=== PATIENT | male | born 1935 | race Caucasian/White ===

== ENCOUNTER → 2023-11-17 11:17 | Outpatient (REF) | payer MEDICARE, OTHER, SELFPAY ==
[2023-11-17 12:32] LABS: PSA, Total - Diagnostic 0.63 ng/ml (0.0-4.0)
== END ==
LOC: OLABPV 11:17
PROVIDERS: ATTENDING PHYSICIAN Specialist
DX: R97.21 Rising PSA following treatment for malignant neoplasm of prostate (principal)
CPT/HCPCS: 36415; 84153

== ENCOUNTER → 2024-01-25 12:11 | Outpatient (REF) | payer MEDICARE, OTHER, SELFPAY ==
[2024-01-25 13:20] LABS: % Basophils 0.7 % (0-2); % Eosinophils 2.2 % (0-6); % Immature Granulocytes 0.2 % (0-0.5); % Lymphocytes 30.4 % (20.5-51.1); % Monocytes 8.5 % (1.7-9.3); Absolute Eosinophils 0.1 10^3/uL (0-0.7); Absolute Lymphocytes 1.4 10^3/uL (1.2-3.4); Absolute Monocytes 0.4 10^3/uL (0.1-0.6); Absolute Neutrophils 2.7 10^3/uL (1.4-6.5); Hematocrit 31.1 % (39.0-52.0); Hemoglobin 10.9 g/dL (13.0-18.0); Mean Corpuscular Hgb 32.8 pg (27.0-31.0); Mean Corpuscular Volume 93.7 fL (80.0-94.0); Mean Platelet Volume 10.6 fL (7.4-10.4); Nucleated Red Blood Cells % 0 % (-); Platelet Count 149 10^3/uL (130-400); Red Blood Cell Count 3.32 10^6/uL (4.70-6.10); White Blood Cell Count 4.6 10^3/uL (4.8-10.8)
[2024-01-25 13:50] LABS: ALT (SGPT) 14 U/L (0-50); AST (SGOT) 25 U/L (17-59); Albumin 3.6 g/dl (3.5-5.0); Alkaline Phosphatase 60 U/L (38-126); Blood Urea Nitrogen 14 mg/dl (9-20); Calcium 9.1 mg/dl (8.4-10.2); Carbon Dioxide 24 mmol/L (22-30); Chloride 105 mmol/L (98-107); Glucose 92 mg/dl (70-99); HDL Cholesterol 79 mg/dl; LDL Cholesterol, Calculated 50 mg/dl; Potassium 4.2 mmol/L (3.5-5.1); Sodium 134 mmol/L (135-145); Total Bilirubin 1.2 mg/dl (0.2-1.3); Total Cholesterol 139 mg/dl (50-199); Total Protein 6.1 g/dl (6.3-8.2); Triglyceride 52 mg/dl (10-149); Very Low Density Lipoprotein 10 mg/dl (0-30); eGFR > 60.00
[2024-01-25 14:17] LABS: PSA, Total - Diagnostic 0.38 ng/ml (0.0-4.0)
== END ==
LOC: OLABPV 12:11
PROVIDERS: ATTENDING PHYSICIAN Specialist; FAMILY PHYSICIAN Family Medicine
DX: R97.21 Rising PSA following treatment for malignant neoplasm of prostate (principal); E78.2 Mixed hyperlipidemia; D72.819 Decreased white blood cell count, unspecified
CPT/HCPCS: 80053; 80061; 84153; 85025

== ENCOUNTER → 2024-02-21 15:20 | Outpatient (REF) | payer MEDICARE, OTHER, SELFPAY ==
[2024-02-21 15:54] LABS: Urine Albumin 1+ (Neg - Trace); Urine Bilirubin 1+ (Negative); Urine Character Very Cloudy (Clear); Urine Color Yellow; Urine Glucose Negative (Negative); Urine Ketone 1+ (Negative); Urine Leukocyte Trace (Negative); Urine Nitrite Positive (Negative); Urine Occult Blood 4+ (Negative); Urine Urobilinogen Negative (Neg - 1+)
[2024-02-21 16:20] LABS: Urine Bacteria Few (Negative); Urine Mucus Many; Urine Red Blood Cell 70-80 /HPF (0-2); Urine Squamous Cell 0-2 /LPF (Few)
== END ==
LOC: REG 15:20
PROVIDERS: ATTENDING PHYSICIAN Physician Assistant; OTHER PHYSICIAN Specialist; REFERRING PHYSICIAN Family Medicine
DX: R31.0 Gross hematuria (principal)
CPT/HCPCS: 81003; 81015; 87086

== ENCOUNTER → 2024-02-22 15:02 | Outpatient (REF) | payer MEDICARE, OTHER, SELFPAY | LOC: HWRAD 15:02 | PROVIDERS: ATTENDING PHYSICIAN Physician Assistant; REFERRING PHYSICIAN Specialist | DX: R31.0 Gross hematuria (principal) | CPT/HCPCS: 74176 ==

== ENCOUNTER 2024-03-02 10:41 | Day surgery (SDC) | payer MEDICARE, OTHER, SELFPAY | END 2024-03-02 12:55 | disposition home or self-care (01) | LOC: CATH 10:41 | PROVIDERS: ATTENDING PHYSICIAN Internal Medicine; FAMILY PHYSICIAN Family Medicine; OTHER PHYSICIAN Internal Medicine Cardiovascular Disease | DX: I48.0 Paroxysmal atrial fibrillation (principal); I10 Essential (primary) hypertension; I49.5 Sick sinus syndrome; Z95.0 Presence of cardiac pacemaker; Z85.46 Personal history of malignant neoplasm of prostate; Z85.828 Personal history of other malignant neoplasm of skin | CPT/HCPCS: 92960; 93005 ==

== ENCOUNTER 2024-03-03 00:32 | Inpatient (IN) | payer MEDICARE, OTHER, SELFPAY ==
[2024-03-02] VITALS (10 sets, daily range): BP systolic 133–153; BP diastolic 100–122; PULSE 2–126; BMI 23.5
[2024-03-02 21:49] LABS: % Basophils 0.3 % (0-2); % Eosinophils 0.2 % (0-6); % Immature Granulocytes 0.5 % (0-0.5); % Lymphocytes 12.3 % (20.5-51.1); % Monocytes 6.1 % (1.7-9.3); % Neutrophils 80.6 % (42.2-75.2); Absolute Immature Granulocytes 0.1 10^3/uL (0-0.05); Absolute Lymphocytes 1.4 10^3/uL (1.2-3.4); Absolute Monocytes 0.7 10^3/uL (0.1-0.6); Absolute Neutrophils 9.1 10^3/uL (1.4-6.5); Hematocrit 34.4 % (39.0-52.0); Mean Corp Hgb Conc. 34.9 g/dL (33.0-37.0); Mean Corpuscular Hgb 32.3 pg (27.0-31.0); Mean Corpuscular Volume 92.5 fL (80.0-94.0); Mean Platelet Volume 10.9 fL (7.4-10.4); Nucleated Red Blood Cells % 0 % (-); Platelet Count 248 10^3/uL (130-400); Red Blood Cell Count 3.72 10^6/uL (4.70-6.10); Red Cell Dist. Width 14.2 % (11.5-14.5); White Blood Cell Count 11.2 10^3/uL (4.8-10.8)
[2024-03-02] MEDS: DUONEB 3 ML INH (22:05)
[2024-03-02 22:22] LABS: ALT (SGPT) 75 U/L (0-50); AST (SGOT) 66 U/L (17-59); Alkaline Phosphatase 118 U/L (38-126); Blood Urea Nitrogen 15 mg/dl (9-20); Calcium 9.5 mg/dl (8.4-10.2); Carbon Dioxide 17 mmol/L (22-30); Chloride 106 mmol/L (98-107); Estimated Creatinine Clearance 71 ml/min; Glucose 134 mg/dl (70-99); Potassium 4.5 mmol/L (3.5-5.1); Sodium 135 mmol/L (135-145); Total Bilirubin 1.2 mg/dl (0.2-1.3); Total Protein 6.9 g/dl (6.3-8.2); eGFR > 60.00
--- NOTE | 2024-03-02 22:23 | ED.GENMED ---
History of Present Illness
<MARTHA Erazo - Last Filed: 03/03/24 01:03>
General
Chief Complaint: Breathing Problem
Source: patient and records
Exam Limitations: none
Time Seen by Provider: 03/02/24 21:59
Travel History
Have you had any contact with someone who has COVID-19?: No
Do you have any symptoms of coronavirus? Fever > 100 degrees, chills, cough, shortness of breath, sore throat, loss of taste or smell, muscle aches, or headache?: No
History of Present Illness
History of Present Illness:
88 year old male with hx of afib, pacemaker in place, recently cardioverted this morning who presents with SOB that began this afternoon. Pt was in afib and was successfully cardioverted here this morning. Around midafternoon he developed SOB with
walking. States he was talking fine and eating dinner with friends. Prior to arrival he developed SOB that has been constant. He also reports intermittent dizziness. Denies chest pain, fevers/chills, cough, abdominal pain, n/v/d, or recent illness.
He has been on Eliquis 5 mg for the past 3 weeks.
Past History
<MARTHA Erazo - Last Filed: 03/03/24 01:03>
Past History
ED Past Medical History: HTN and Hypercholesterolemia
Social History
Personal:
Review of Systems
<MARTHA Erazo - Last Filed: 03/03/24 01:03>
Review of Systems
Allergies reviewed?: Yes
All Other Systems: ROS reviewed and negative except as documented in HPI and ROS
Constitutional: Reports fatigue
EENT: Reports no symptoms
Respiratory: Reports trouble breathing
Cardiac: Reports no symptoms
ABD/GI: Reports no symptoms
: Reports no symptoms
Musculoskeletal: Reports no symptoms
Skin: Reports no symptoms
Neurological: Reports dizzy
Endocrine: Reports no symptoms
Hematologic/Lymphatic: Reports no symptoms
Psychiatric: Reports no symptoms
Phy Exam
<MARTHA Erazo - Last Filed: 03/03/24 01:03>
General Physical Exam
General Presentation: moderate distress
General age: appears stated age
General Skin: warm and dry
General Habitus: normal
General Mental: alert
General Hydration: appears well hydrated
Cardiovascular Exam
Cardiovascular Exam: no gallop, no murmur, normal peripheral pulses and tachycardia
Pulmonary Exam
Pulmonary Exam: no rales, no rhonchi, decreased breath sounds, generalized wheezing, respiratory distress (mild) and other (Pt with mild respiratory distress, only able to speak in short sentences before needing to catch his breath. Pacemaker to R
anterior chest. )
Respiratory Effort: tachypnea
Oxygen Status: non-rebreather mask
Cough: no cough
Neurological Exam
Neurological Exam: alert and oriented x3
Musculoskeletal Exam
Musculoskeletal Exam: edema (mild, bilateral lower extremities)
Skin Exam
Skin Exam: normal color and warm/dry
Psychiatric Exam
Psychiatric Exam: anxious
Scores
<MARTHA Erazo - Last Filed: 03/03/24 01:03>
Heart Failure Risk
HF Risk Score: 6
Admission Status: VERY HIGH RISK 55.3% Consider admission to hospital
<Max Chandler DO - Last Filed: 03/03/24 00:36>
Heart Failure Risk
Heart Failure Risk Score: Yes
History of Stroke or TIA: No
History of intubation for respiratory distress: No
Heart rate on ED arrival >/= 110: Yes
SaO2 <90% on arrival on room air: Yes
HR >/=110 during 3min walk test (or too ill to perform test): Yes
ECG has acute ischemic changes: No
Urea >/=12mmol/L (BUN 33.6mg/dL): No
Serum CO2>/=35mmol/L: No
Troponin I or T elevated to MO Level (0.4mg/dL): Yes
NT-proBNP >/=5,000ng/L (5,000pg/ml): Yes
HF Risk Score: 6
Admission Status: VERY HIGH RISK 55.3% Consider admission to hospital
Course
<MARTHA Erazo - Last Filed: 03/03/24 01:03>
Orders/Labs/Results
Orders:
Orders
03/02/24 21:17
Electrocardiogram (*1) Urgent
Reason for Study: Shortness of Breath
EKG- Treatment ONCE
03/02/24 21:38
Complete Blood Count/With Diff Urgent
Comprehensive Metabolic Panel Urgent
03/02/24 21:49
Ipratropium/Albuterol Sulfate [Duoneb] 3 ml .ROUTE .STK-MED ONE
03/02/24 22:05
Ipratropium/Albuterol Sulfate [Duoneb] 3 ml INH R NOW ONE
03/02/24 22:38
Nitroglycerin Ointment [Nitro-Bid] 0.5 inch TOPICAL NOW STA
03/02/24 22:39
CT Chest Pe Study Urgent
Comment:
Reason For Exam: sudden onset dyspnea
03/02/24 22:42
NT-proBNP Urgent
Troponin I Urgent
Comment: ADDED
03/02/24 23:22
Add On- LAB Urgent
Tests Added?: troponin
03/02/24 23:23
Furosemide [Lasix] 60 mg IV NOW STA
03/02/24 23:29
Bipap [RESP] Urgent
Patient to use own unit?: No
Inspiratory Pressure (cm H2O): 12
Expiratory Pressure (cm H2O): 5
03/02/24 23:59
Lorazepam [Ativan] 2 mg .ROUTE .STK-MED ONE
03/03/24 00:01
Lorazepam [Ativan] 0.25 mg IV NOW STA
03/03/24 00:11
Admit/Transfer Patient As Directed
Co-Sign Provider:
Level of Care: Inpatient admission
Assign to:: ICU
Physician / Group: Aleksey
Diagnosis: CHF / Hypoxemic Resp Failure
Reason for Hospitalization: CHF / Hypoxemic Resp Failure
Expected length of stay greater than two midnights?: Yes
ELOS- Estimated Length of Stay in days: 3
I certify the patient meets the requirements for IP care: Yes
03/03/24 00:12
Code Status As Directed
Resuscitation Status: Full Code
Abnormal Lab Results
03/02/24 03/02/24
21:38 22:42
WBC 11.2 H 10^3/uL
(4.8-10.8)
RBC 3.72 L 10^6/uL
(4.70-6.10)
Hgb 12.0 L g/dL
(13.0-18.0)
Hct 34.4 L %
(39.0-52.0)
MCH 32.3 H pg
(27.0-31.0)
MPV 10.9 H fL
(7.4-10.4)
Abs Immat Gran (auto) 0.1 H 10^3/uL
(0-0.05)
Absolute Neuts (auto) 9.1 H 10^3/uL
(1.4-6.5)
Absolute Monos (auto) 0.7 H 10^3/uL
(0.1-0.6)
Neutrophils % 80.6 H %
(42.2-75.2)
Lymphocytes % 12.3 L %
(20.5-51.1)
Carbon Dioxide 17 L mmol/L
(22-30)
Glucose 134 H mg/dl
(70-99)
AST 66 H U/L
(17-59)
ALT 75 H U/L
(0-50)
Troponin I 0.103 H* ng/ml
03/02/24 21:38
03/02/24 21:38
Vital Signs
Initial and Last Documented VS:
Initial Vital Signs
Temp Pulse Resp BP Pulse Ox
98 F 120 30 142/104 88
03/02/24 21:17 03/02/24 21:17 03/02/24 21:17 03/02/24 21:17 03/02/24 21:17
Last Documented Vital Signs
Temp Pulse Resp BP Pulse Ox
98 F 112 28 119/92 95
03/02/24 21:17 03/03/24 00:16 03/03/24 00:16 03/03/24 00:16 03/03/24 00:27
<Max Chandler, DO - Last Filed: 03/03/24 00:36>
Orders/Labs/Results
Orders:
Orders
03/02/24 21:17
Electrocardiogram (*1) Urgent
Reason for Study: Shortness of Breath
EKG- Treatment ONCE
03/02/24 21:38
Complete Blood Count/With Diff Urgent
Comprehensive Metabolic Panel Urgent
03/02/24 21:49
Ipratropium/Albuterol Sulfate [Duoneb] 3 ml .ROUTE .STK-MED ONE
03/02/24 22:05
Ipratropium/Albuterol Sulfate [Duoneb] 3 ml INH R NOW ONE
03/02/24 22:38
Nitroglycerin Ointment [Nitro-Bid] 0.5 inch TOPICAL NOW STA
03/02/24 22:39
CT Chest Pe Study Urgent
Comment:
Reason For Exam: sudden onset dyspnea
03/02/24 22:42
NT-proBNP Urgent
Troponin I Urgent
Comment: ADDED
03/02/24 23:22
Add On- LAB Urgent
Tests Added?: troponin
03/02/24 23:23
Furosemide [Lasix] 60 mg IV NOW STA
03/02/24 23:29
Bipap [RESP] Urgent
Patient to use own unit?: No
Inspiratory Pressure (cm H2O): 12
Expiratory Pressure (cm H2O): 5
03/02/24 23:59
Lorazepam [Ativan] 2 mg .ROUTE .STK-MED ONE
03/03/24 00:01
Lorazepam [Ativan] 0.25 mg IV NOW STA
03/03/24 00:11
Admit/Transfer Patient As Directed
Co-Sign Provider:
Level of Care: Inpatient admission
Assign to:: ICU
Physician / Group: Aleksey
Diagnosis: CHF / Hypoxemic Resp Failure
Reason for Hospitalization: CHF / Hypoxemic Resp Failure
Expected length of stay greater than two midnights?: Yes
ELOS- Estimated Length of Stay in days: 3
I certify the patient meets the requirements for IP care: Yes
03/03/24 00:12
Code Status As Directed
Resuscitation Status: Full Code
Abnormal Lab Results
03/02/24 03/02/24
21:38 22:42
WBC 11.2 H 10^3/uL
(4.8-10.8)
RBC 3.72 L 10^6/uL
(4.70-6.10)
Hgb 12.0 L g/dL
(13.0-18.0)
Hct 34.4 L %
(39.0-52.0)
MCH 32.3 H pg
(27.0-31.0)
MPV 10.9 H fL
(7.4-10.4)
Abs Immat Gran (auto) 0.1 H 10^3/uL
(0-0.05)
Absolute Neuts (auto) 9.1 H 10^3/uL
(1.4-6.5)
Absolute Monos (auto) 0.7 H 10^3/uL
(0.1-0.6)
Neutrophils % 80.6 H %
(42.2-75.2)
Lymphocytes % 12.3 L %
(20.5-51.1)
Carbon Dioxide 17 L mmol/L
(22-30)
Glucose 134 H mg/dl
(70-99)
AST 66 H U/L
(17-59)
ALT 75 H U/L
(0-50)
Troponin I 0.103 H* ng/ml
03/02/24 21:38
03/02/24 21:38
Vital Signs
Initial and Last Documented VS:
Initial Vital Signs
Temp Pulse Resp BP Pulse Ox
98 F 120 30 142/104 88
03/02/24 21:17 03/02/24 21:17 03/02/24 21:17 03/02/24 21:17 03/02/24 21:17
Last Documented Vital Signs
Temp Pulse Resp BP Pulse Ox
98 F 112 28 119/92 95
03/02/24 21:17 03/03/24 00:16 03/03/24 00:16 03/03/24 00:16 03/03/24 00:27
[place];MARTHA Erazo - Last Filed: 03/03/24 01:03>
MDM/Problems Addressed
Differential Diagnosis Includes:
Afib, PE, CHF, PNA
MDM/Problems Addressed:
88 year old male who presents with SOB that began today in the midafternoon.
Chronic conditions affecting care: HTN and Arrhythmia (afib)
<MARTAH Erazo - Last Filed: 03/03/24 01:03>
*Critical Care Note
Total Time (30-74mins, 75-104mins- exclusive of procedures): Not Applicable
ED Attending Note
<MARTHA Erazo - Last Filed: 03/03/24 01:03>
-
Portions of this chart may have been created with voice recognition software.� Occasional wrong word or��sound alike� substitutions may have occurred due to the inherent limitations of voice recognition software.
<Max Chandler DO - Last Filed: 03/03/24 00:36>
ED Attending Note
Patient seen and examined by attending physician: Yes
I performed the substantive portion of visit, reviewed & personally made and approve the management plan that is documented in note by myself or YVONNE.: Yes
ED Attending Note:
Pleasant 88-year-old male that presents with shortness of breath that began quite suddenly this afternoon. Patient was seen earlier and had cardioversion successfully. His shortness of breath developed after the cardioversion. Patient states that
he developed dyspnea on exertion patient denies chest pain. He reports no fevers chills nausea or vomiting. Patient has been on Eliquis for 3 weeks and has been taking it as directed. Patient was seen in conjunction with the PA student. I have
reviewed and agree with the history and treatment plan presented. On my independent physical exam, patient is awake, alert, and oriented x3, moderate acute distress. Dyspnea on exertion.
Vital signs are stable. Patient not hypoxic
Nursing note reviewed. I agree with nursing documentation up to this point in time.
Home Meds and allergies reviewed.
NUMBER AND COMPLEXITY OF PROBLEMS ADDRESSED AT THE ENCOUNTER
� Chronic conditions affecting care: Hypertension, A-fib
� Acute Exacerbation and/or Progression of Chronic Illness: Pacemaker
� Differential Diagnosis includes:
AMOUNT AND/OR COMPLEXITY OF DATA TO BE REVIEWED AND ANALYZED
I performed an independent evaluation of the following and my interpretation is:
EKG: Sinus tachycardia rate of 109 was normal intervals, no evidence of acute ischemia present.
CT:
X-rays:
Ultrasound:
Laboratory Studies:
Other:
Review of other/old records:
Clinical information was obtained by an independent historian:
Prescriptions/Medications Considered but not given:
Further testing considered but not performed:
RISK OF COMPLICATIONS AND/OR MORBIDITY OR MORTALITY OF PATIENT MANAGEMENT
Social determinants of health affecting care: Good Social Support
Discussion with other providers:
Escalation of care including admission/observation vs risk of discharge considered:
CRITICAL CARE NOTE:
Total Time (exclusive of procedures):
Update:
Discharge Plan
Departure
Patient Disposition: Admit
Date of Disposition: 03/02/24
Time of Disposition: 23:37
Admit to: IVU
Presentation/result/management discussed w/ accepting MD/DO: Hospitalist
Patient with high blood pressure during this ER visit?: Yes
Condition: Serious
Discharge Problem:
Flash pulmonary edema
Interventions
Interventions:
*Risk Screen - Suicide Last Done: 03/02/24 21:17
*General Assessment Last Done: 03/02/24 21:17
*Neglect/Abuse Screening Last Done: 03/02/24 21:17
ED- Fall Risk Assessment Last Done: 03/02/24 23:34
ED- Cardiac Assessment Last Done: 03/02/24 23:34
ED- Pulmonary Assessment Last Done: 03/03/24 00:31
[2024-03-02] MEDS: NITRO-BID 0.5 INCH TOPICAL (22:42)
[2024-03-02 23:10] LABS: NT-proBNP 5930 pg/ml
[2024-03-02] MEDS: LASIX 60 MG IV (23:32)
[2024-03-03] VITALS (44 sets, daily range): BP systolic 91–153; BP diastolic 61–117; PULSE 2–102; O2SAT 94; BMI 23.2
[2024-03-03] MEDS: ATIVAN 0.25 MG IV (00:01)
[2024-03-03 00:03] LABS: Troponin I 0.103 ng/ml
--- NOTE | 2024-03-03 00:23 | HPS.HSE ---
Family Physician
-
Family Physician: Harsha Oliva
Chief Complaint
-
SOB
History of Present Illness
Patient is an 88y M with PMH significant for SSS / A-Fib and hypertension who presents to ED complaining of SOB. Patient states that he has had gradually progressive dyspnea for the past few weeks or so. It has become significantly worse in the
past week and patient was evaluated by Cardiology and found to be in atrial fibrillation. This was initially noted on his PPM on 02/15 and has been persistent since that time. Given his new A-Fib and worsening dyspnea, patient was scheduled for
cardioversion which he completed earlier today. He received a single shock at 200 J with successful return to sinus rhythm.
Patient states that he remained SOB following the procedure and felt much more SOB this afternoon - prompting his presentation to the ED for evaluation.
In the ED, patient is noted to be diaphoretic and in moderate distress at times with increased work of breathing. He denies any chest pain. No cough. No fevers / chills.
He was hypoxemic at 88% on room air on arrival and is on BiPAP at the time of my examination.
Medical History
Past Medical History
Past Medical History: Reports Other
Additional Past Medical History:
Hypertension
Paroxysmal Atrial Fibrillation
SSS s/p PPM
Prostate Cancer
Nephrolithiasis
Non-Melanoma Skin Cancer
Past Surgical History: Reports Other
Additional Past Surgical History:
PPM Placement
TURP
Herniorrhaphy
Skin Cancer Excision
Social History
Tobacco: Non-smoker
Alcohol: Occasional
Drug: None
Family History
Family History: Other (Father: Thoracic Aortic Aneurysm Mother: Breast Cancer)
Allergies / Home Medications
Allergies reflects when Allergies were last updated in [facility].
Home Medications with original date entered in [facility]
Allergy/Medication List:
Allergies
Allergy/AdvReac Type Severity Reaction Status Date / Time
No Known Allergies Allergy Unverified 11/30/22 11:52
Home Medications
atorvastatin 10 mg tablet 10 mg PO HS 06/29/13
tamsulosin 0.4 mg capsule 0.4 mg PO DAILY #5 caps 07/18/14
cyclosporine 0.05 % eye drops 1 drp BOTH EYES Q12H 11/30/22
fluticasone propionate 50 mcg/actuation nasal spray,suspension 1 spray intranasal DAILY PRN nasal congestion 11/30/22
losartan 50 mg tablet 50 mg PO DAILY 11/30/22
apixaban 5 mg tablet (Eliquis) 5 mg PO BID 03/02/24
cholecalciferol (vitamin D3) 25 mcg (1,000 unit) tablet (Vitamin D3) 25 mcg PO DAILY 03/02/24
ginkgo biloba 60 mg capsule 60 mg PO DAILY 03/02/24
metoprolol succinate 50 mg tablet,extended release 24 hr (Toprol XL) 50 mg PO DAILY 03/02/24
tadalafil 10 mg tablet 5 mg PO DAILY 03/02/24
Review of Systems
-
History Source: Patient
A 12 point ROS was completed and negative except as noted: Yes
Constitutional: Reports Fatigue; Denies Fever or Chills
EENT: Denies Sore Throat
Respiratory: Reports Trouble Breathing; Denies Cough or Hemoptysis
Cardiac: Reports Diaphoresis; Denies Chest Pain, Palpitations or Syncope
Abdomen/GI: Denies Abdominal Pain, Nausea or Vomiting
: Denies Dysuria or Frequency
Neurological: Denies Dizzy or Headache
Psych: Reports Anxiety; Denies Depression
Physical Exam
Vital Signs
Vital Signs
Temp Pulse Resp BP Pulse Ox
98 F 106 33 138/104 97
03/02/24 21:17 03/03/24 00:00 03/03/24 00:00 03/03/24 00:00 03/02/24 23:45
Physical Exam
General: Other (Diaphoretic 88y M in moderate respiratory distress.)
HEENT: Moist mucous membranes and PERRLA
Respiratory: Other (Diffuse rales and expiratory wheezes throughout.)
Cardiac: S1/S2 and Irregular Rhythm; No Murmur
GI: Soft, Non Tender, Non Distended and Normal Bowel Sounds
Musculoskeletal: No Clubbing, No Cyanosis and Other (1+ pitting edema b/l LEs.)
Neuro: AO x 3 and Nonfocal/grossly intact
Laboratory Results
-
03/02/24 21:38
03/02/24 21:38
Laboratory Results
Total Bilirubin 1.2 mg/dl (0.2-1.3) 03/02/24 21:38
AST 66 U/L (17-59) H 03/02/24 21:38
ALT 75 U/L (0-50) H 03/02/24 21:38
Alkaline Phosphatase 118 U/L (38-126) 03/02/24 21:38
Troponin I 0.103 ng/ml H* 03/02/24 22:42
Impression/Plan
-
A/P: Patient is an 88y M with PMH significant for SSS, paroxysmal A-Fib and hypertension who presents to ED complaining of worsening SOB following DCCV earlier in the day.
Acute HF - Likely Preserved EF
Acute Hypoxemic Respiratory Failure secondary to the above
Bilateral Pleural Effusions secondary to the above
- Admit to ICU for further evaluation and treatment.
- Maintain BiPAP support overnight.
- IV Lasix BID and follow for effective diuresis.
- Update Echo.
- Cardiology evaluation for additional recommendations.
- Avoid nitroglycerin for now in patient on chronic / daily tadalafil.
- Follow serial trop to rule out new ischemia - would suspect some elevation given today's cardioversion.
Leukocytosis
- Likely stress response. Patient is afebrile and denies any recent complaints c/w infection.
- Observe off of abx for now and follow for any new complaints, fevers, etc.
Non-Ischemic Myocardial Injury
- Mild troponin elevation likely combination of cardioversion and current CHF exacerbation.
- Follow to [facility].
- Cardiology eval as noted above.
Paroxysmal Atrial Fibrillation
SSS s/p PPM
- Stable. Remains in sinus rhythm, albeit with frequent ventricular and atrial ectopy.
- Continue to monitor on telemetry.
- Continue metoprolol.
- Continue Eliquis for stroke risk reduction.
Benign Hypertension
- Currently significantly elevated - likely due to combination of dyspnea / distress and hypervolemia.
- Avoid nitrates as noted (x 48 hours) given daily tadalafil use.
- Continue usual home antihypertensives plus efforts at diuresis.
- Adjust regimen as needed for adequate BP control.
History of Prostate Cancer
- Hold tadalafil as noted above.
- Continue tamsulosin.
- Bladder scan protocol.
DVT Prophylaxis: On Eliquis
Code Status: Full
[2024-03-03] MEDS: MORPHINE SULFATE 2 MG IV (01:45)
--- NOTE | 2024-03-03 02:09 | PTCARENOTE ---
Pt received from ED via stretcher. Admit ICU LOC. Ox3, drowsy but easily arousable to verbal stimuli. Dyspnea at rest, difficulty speaking. PRN morphine given for dyspnea. Now tolerating bipap 12/5, 8L. Pulse ox 100%. Breath sounds coarse t/o. Sinus
tach w/ frequent PVCs and occasional AV pacer spikes. + bowel sounds. Per report, urinating minimal amounts frequently. Bladder scanned for >260ml after 50ml void, straight cath for 350ml. Safe environment maintained, call shukla within reach, plan of
care ongoing.
[2024-03-03 05:11] LABS: INR 1.75; PT 20.3 Sec (11.4-14.6)
--- NOTE | 2024-03-03 06:11 | PTCARENOTE ---
Assessment unchanged. Pt repositioned with heels offloaded. Pt consistently removes pillow for heels and repositions self to supine position.
[2024-03-03 06:28] LABS: Blood Urea Nitrogen 17 mg/dl (9-20); Calcium 9.1 mg/dl (8.4-10.2); Carbon Dioxide 20 mmol/L (22-30); Chloride 104 mmol/L (98-107); Estimated Creatinine Clearance 55 ml/min; Glucose 145 mg/dl (70-99); HDL Cholesterol 66 mg/dl; LDL Cholesterol, Calculated 43 mg/dl; Magnesium 1.8 mg/dl (1.6-2.3); Phosphorus 5.2 mg/dl (2.5-4.5); Potassium 4.8 mmol/L (3.5-5.1); Sodium 136 mmol/L (135-145); Total Cholesterol 124 mg/dl (50-199); Triglyceride 76 mg/dl (10-149); Very Low Density Lipoprotein 15 mg/dl (0-30); eGFR > 60.00
[2024-03-03] MEDS: TYLENOL 650 MG PO (09:25)
[2024-03-03] MEDS: FLOMAX 0.400000000000000022 MG PO (09:26)
[2024-03-03] MEDS: TOPROL XL 50 MG PO (09:26)
[2024-03-03] MEDS: ELIQUIS 5 MG PO ×2 (09:26→19:51)
[2024-03-03] MEDS: LASIX 40 MG IV ×2 (09:27→17:00)
[2024-03-03] MEDS: NSS (PRESERVATIVE FREE) 10 ML IV (09:28)
[2024-03-03] MEDS: PROTONIX IV 40 MG IV (09:28)
[2024-03-03] MEDS: LOW STRENGTH ASPIRIN 81 MG PO (09:28)
--- NOTE | 2024-03-03 09:50 | CON.CAR ---
Addendum entered and electronically signed by David Marquez MD 03/03/24 13:45:
I saw and examined the patient.
The Dry Wall Nailer's note was reviewed and I agree with the note.
Comment:
GEN: No distress, awake, Ox3
HEENT: supple, anicteric, mmm
LUNGS: dec BS at bases
CV: Reg, S1/S2, / syst LSB, S4+
ABD: soft, BS+, NT/ND
EXT: +1 edema
NEURO: Gross non-focal
SKIN: No rash
Plan:
He has a past medical history of moderate aortic regurgitation, ventricular tachycardia who had an elective cardioversion March 02, 2024 who then went home and had acute heart failure with preserved ejection fraction. proBNP was elevated 5900 he
required BiPAP. He remains in sinus rhythm and we are asked to help manage his congestive heart failure. He also has a history of permanent pacemaker.
Continue IV Lasix. Check echocardiogram to reevaluate LVEF and aortic valve.
He remains in sinus rhythm but is having frequent premature beats and ectopy. Will add low-dose amiodarone to try and help maintain sinus rhythm with his congestive heart failure.
Continue Toprol and Eliquis.
Of note he has prostate cancer which appears to be progressing.
Original Note:
Consultation
Consultation Request
Date/Time Consultation Performed: 03/03/24
Requesting Provider: Dr. Ryder
Performing Provider: Johanna Urena PA-C for Dr. DREW Briseno
Reason for Consultation: CHF
Medical History
-
Chief Complaint: SOB
History of Present Illness:
Patient is an 88-year-old male with past medical history of paroxysmal atrial fibrillation on chronic Eliquis, history of VT 05/2023 resolved with beta-malaika, hypertension, SSS with history of pacemaker, moderate AI, hyperlipidemia, prostate
cancer. He was seen in office 03/01/2024 and noted to be back in atrial fibrillation with rapid ventricular response. He was arranged for cardioversion which she underwent 03/02/2024. He then went home and noticed progressive worsening of shortness
of breath and return to emergency room. He required BiPAP on arrival. proBNP 5900. Chest x-ray with evidence of bilateral effusions and pulmonary edema consistent with heart failure. Cardiology consulted for evaluation. He has previously not
required diuretic therapy
PMH:
Paroxysmal atrial fibrillation
Status post cardioversion 03/02/2024
Chronic anticoagulation with Eliquis
History of VT 05/2023 resolved with addition of beta-malaika
Hypertension
Sick sinus syndrome with history of [employer] DC pacemaker
Moderate AI by echo in 2022
Hyperlipidemia
Prostate cancer
Past Medical History
Past Medical History: Other (in HPI)
Social History
Tobacco: Non-Smoker
Alcohol: Occasional
Living: Alone
Employment: Retired
Family History
Family History: Cancer
Allergies / Home Medications
Allergy/AdvReac Type Severity Reaction Status Date / Time
No Known Allergies Allergy Unverified 11/30/22 11:52
�Medication �Instructions �Recorded �Confirmed �Type
atorvastatin 10 mg tablet 10 mg PO HS 06/29/13 03/02/24 History
tamsulosin 0.4 mg capsule 0.4 mg PO DAILY #5 caps 07/18/14 03/02/24 Rx
cyclosporine 0.05 % eye drops 1 drp BOTH EYES Q12H 11/30/22 03/02/24 History
fluticasone propionate 50 1 spray intranasal DAILY PRN nasal 11/30/22 03/02/24 History
mcg/actuation nasal congestion
spray,suspension
losartan 50 mg tablet 50 mg PO DAILY 11/30/22 03/02/24 History
apixaban 5 mg tablet (Eliquis) 5 mg PO BID 03/02/24 03/02/24 History
cholecalciferol (vitamin D3) 25 25 mcg PO DAILY 03/02/24 03/02/24 History
mcg (1,000 unit) tablet (Vitamin
D3)
ginkgo biloba 60 mg capsule 60 mg PO DAILY 03/02/24 03/02/24 History
metoprolol succinate 50 mg 50 mg PO DAILY 03/02/24 03/02/24 History
tablet,extended release 24 hr
(Toprol XL)
tadalafil 10 mg tablet 5 mg PO DAILY 03/02/24 03/02/24 History
Review of Systems
-
History Source: Patient
All other systems: Negative unless noted
Physical Exam
Vital Signs
Temp Pulse Resp BP Pulse Ox
98.8 F 108 20 131/105 96
03/03/24 07:56 03/03/24 09:27 03/03/24 05:00 03/03/24 09:27 03/03/24 08:11
Lab Results
03/02/24 21:38
03/03/24 05:52
Troponin I Cancelled 03/03/24 13:17
Beq-I-Rjqvqsvipsx Pept 5930 pg/ml 03/02/24 22:42
Physical Exam
General: No Apparent Distress and Other (on supp O2)
HEENT: Normocephalic, Anicteric and Moist Mucous Membranes
Respiratory: Crackles and Non Labored Respirations
Cardiac: S1/S2 and Regular Rhythm
GI: Soft, Non Tender, Non Distended and Normal Bowel Sounds
Musculoskeletal: No Clubbing, No Cyanosis and Edema (1+ of B/L LE)
Skin: Warm and Dry
Neuro: AO x 3
Impression / Plan
-
Primary Hand Stitcher: Dr. Beltre
Assessment:
Presentation with SOB
Acute hypoxic respiratory failure
Acute HFpEF with B/L pleural effusions by imaging
Leukocytosis
Elevated troponin
Paroxysmal atrial fibrillation
Status post cardioversion 03/02/2024
Chronic anticoagulation with Eliquis
History of VT 05/2023 resolved with addition of beta-malaika
Hypertension
Sick sinus syndrome with history of [employer] DC pacemaker
Moderate AI by echo in 2022
Hyperlipidemia
History of prostate cancer
Lung nodule
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
Pancreatic calcifications by CTAP
ECHO 02/25/23: EF 62%, mildly enlarged RV, severely dilated left atrium, mildly dilated right atrium, mild MR, moderate AR, mild TR, PAP 25 to 30 mmHg, dilated aortic root at 4.0 cm
Plan:
-He was noted to go into afib as of 02/16/24 (pacemaker alert) with elevated rates at times noted. Seen in office 03/01 and arranged for cardioversion 03/02 which was successful. Patient presented with shortness of breath after cardioversion 03/02/2024.
Upon review of office note from 03/01/2024 patient had had some dyspnea on exertion and lower extremity edema prior to cardioversion as well.
-Initially required BiPAP, now on nasal cannula. Continue to wean as able
-Continue IV Lasix 40mg BID. Was not on diuretic prior to admission
-Consider for thoracenteses given bilateral pleural effusions on imaging, however would need to be completed on Eliquis as patient with recent cardioversion 03/02
-CHF education
-Repeat echo, last from 2022 with results as above
-Currently in sinus rhythm however with atrial as well as ventricular ectopy which is frequent. He has a history of VT in 2022. Continue toprol. Will add amiodarone 200 mg 3 times daily for now
-continue eliquis
-asa added this admission due to elevated troponin. up to 0.2, trend to peak. no CP. suspected nonMI trop elevation in setting of acute CHF
-would consider for OP ischemic evaluation
-holding OP losartan for now
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 would recommend oncology evaluation
-d/w nursing, hospitalist
Data Reviewed
-
EKG: Tracing Personally Visualized and interpreted
Radiology: Report Reviewed by me
CT Scan: Report Reviewed by me
Medical Tests (Nuc Med, Echo etc): Report Reviewed by me
Labs: Labs Reviewed by me
Old Records: Reviewed
--- NOTE | 2024-03-03 10:51 | CON.INTV ---
Consultation
Consultation Request
Date/Time Consultation Requested: 03/03/2024
Date/Time Consultation Performed: 03/03/2024
Requesting Provider: Dr. Ryder
Performing Provider: Dr. Karsten Michaels
Reason for Consultation: Acute hypoxemic respiratory failure due to heart failure
Medical History
-
History of Present Illness:
88-year-old man with past medical history significant for sick sinus syndrome, atrial fibrillation, hypertension who presented to [facility] complaining of shortness of breath. Shortness of breath has been progressive over the last several
weeks. He was found to be on atrial fibrillation by cardiology in the outpatient setting. On February 15 he underwent cardioversion. He converted to sinus rhythm. Remains short of breath. Symptoms progressed to the point that he return to the
emergency room.
He was in moderate respiratory distress in the emergency room. Increased work of breathing. Required noninvasive mechanical ventilation.
Chest x-ray was consistent with heart failure. proBNP was elevated.
Currently in the critical care unit, he feels more comfortable. Has not required BiPAP.
Denies any significant phlegm production.
Denies any chest pain.
He feels tired this morning. Did receive some morphine earlier today.
Past Medical History
Past Medical History: Other (See assessment and plan section)
Social History
Tobacco: Non-smoker
Alcohol: Occasional
Drug: None
Family History
Family History: Reviewed & Not Pertinent
Allergies / Home Medications
Allergies
Allergy/AdvReac Type Severity Reaction Status Date / Time
No Known Allergies Allergy Unverified 11/30/22 11:52
Home Medications
�Medication �Instructions �Recorded �Confirmed �Last Taken �Type
atorvastatin 10 mg tablet 10 mg PO HS 06/29/13 03/02/24 03/01/24 History
tamsulosin 0.4 mg capsule 0.4 mg PO DAILY #5 caps 07/18/14 03/02/24 03/02/24 Rx
cyclosporine 0.05 % eye drops 1 drp BOTH EYES Q12H 11/30/22 03/02/24 03/02/24 History
fluticasone propionate 50 1 spray intranasal DAILY PRN nasal 11/30/22 03/02/24 Unknown History
mcg/actuation nasal congestion
spray,suspension
losartan 50 mg tablet 50 mg PO DAILY 11/30/22 03/02/24 03/02/24 History
apixaban 5 mg tablet (Eliquis) 5 mg PO BID 03/02/24 03/02/24 03/02/24 History
cholecalciferol (vitamin D3) 25 25 mcg PO DAILY 03/02/24 03/02/24 03/02/24 History
mcg (1,000 unit) tablet (Vitamin
D3)
ginkgo biloba 60 mg capsule 60 mg PO DAILY 03/02/24 03/02/24 03/02/24 History
metoprolol succinate 50 mg 50 mg PO DAILY 03/02/24 03/02/24 03/02/24 History
tablet,extended release 24 hr
(Toprol XL)
tadalafil 10 mg tablet 5 mg PO DAILY 03/02/24 03/02/24 03/02/24 History
Review of Systems
Vitals / Labs / Diagnostic Testing
Vital Signs
Temp Pulse Resp BP Pulse Ox
98.1 F 102 16 138/91 100
03/03/24 10:10 03/03/24 10:10 03/03/24 10:10 03/03/24 10:10 03/03/24 10:10
Lab Data
03/02/24 21:38
03/03/24 05:52
Laboratory Results
03/03/24
04:44
PT 20.3 H
INR 1.75
APTT 34.0
Diagnostic Testing:
Physical Exam
-
HEENT: Normocephalic
Cardiovascular: S1/S2
Respiratory: Rales and Non-Labored Respirations
GI: Soft and Non Distended
Neurology: Awake
Skin: Warm
General: Respiratory Distress (n)
Assessment
-
88-year-old male with history of atrial fibrillation, pacemaker, recently underwent cardioversion 02/16/2024 for atrial fibrillation. Converted to sinus rhythm. Remains short of breath. Symptoms progressed to the point that patient return to the
emergency room and he was admitted with increased work of breathing hypoxemia. Required noninvasive mechanical ventilation.
Acute hypoxemic respiratory failure requiring noninvasive mechanical ventilation and supplemental oxygen
Respiratory failure triggered by pulmonary edema/acute on chronic heart failure with preserved ejection fraction
CT chest: Showed bilateral pleural effusions with groundglass opacities consistent with pulmonary edema. Reviewed by me.
proBNP 5130
Mild troponin leak: Suspect non-HI
History of atrial fibrillation status post cardioversion 02/16/2024
Normal TSH
Conditions present prior admission:
Atrial fibrillation
Sick sinus syndrome status post pacemaker placement
History of prostate cancer
Sclerotic lesions on L3-L4 on CT abdomen pelvis 02/23/2024-new compared to prior
Nephrolithiasis
History of skin cancer
Prior TURP
Assessment and plan:
Since overnight, clinically improved. Has not required BiPAP.
Okay to discontinue BiPAP
Now on nasal cannula oxygen [address] of the chest reviewed: Showed patchy groundglass opacity with bilateral pleural effusions consistent with pulmonary edema.
Likely acute on chronic heart failure with preserved ejection fraction
-
Currently on sinus rhythm.
-
Cardiology correspondence reviewed: IV diuretics
On amiodarone orally
Follow renal function electrolytes
Trend troponins-likely non-HI
Low-sodium diet
-
Patient somewhat somnolent this morning, did receive some morphine yesterday, obtain a speech evaluation and advance diet if able.
Head of the bed elevation
Avoid further sedation
-
Suspect pleural effusion due to heart failure. Doubt infectious etiology.
He was sent for thoracentesis, will wait for results.
-
Sclerotic lesions on L3 and L4 on CAT scan abdomen pelvis 02/23/2024. Outpatient follow-up with a history of prostate cancer.
-
He will need radiographic follow-up of abnormalities on the chest with a repeat CAT scan in 3 months. I will leave information in the chart.
-
DVT prophylaxis-on anticoagulation-Eliquis
-
Transfer to IVU
Pulmonary will continue to follow briefly for his hypoxemia.
--- NOTE | 2024-03-03 10:54 | PTCARENOTE ---
pt awake and alert this am , pt afib on monitor, Bb 119/97 , on Bipap in am now off and on 10L mid flow 02 sats 99% , lungs crackles throughout , abd soft non tender , incontinent of urine using condom cath , no edema in lower extremities, pt is
currently in IR for possible thoracentesis , pt having difficulty with swallowing oral Meds this am , speech is consulted for eval , pt is now written for IVU level of care
[2024-03-03 11:17] LABS: Body Fluid pH 7.44
--- NOTE | 2024-03-03 11:30 | PTOTSP ---
Speech Language Pathology
Pt seen for clinical bedside swallow evaluation. Three previous VSEs completed (2007, 2011, and 2019). Progressively worse pharyngeal retention noted across studies. On most recent VSE in 2019, recommendations were for chopped/moist solids and
thin liquids.
This date, P.O. trials of puree, regular solids, and thin liquids provided. Prolonged mastication of regular solids noted. Globus sensation reported with puree and regular solids, which he was eventually able to clear with independent swallows and
liquid washes. Consistent throat clearing noted with P.O. intake. Cough x1.
Pt reported that swallow function is at baseline. He denied any significant changes since last VSE completed in 2019. He also denied any PNA.
Recommend:
(1) Initiate IDDSI Level 6 (Soft/Bite-Sized) and Thin Liquids
(2) Aspiration precautions: sit upright, slow rate, single sips
(3) Meds as tolerated
(4) Will consider VSE pending tolerance of diet/signs of PNA
(5) ERP PROGRAMMER to continue to follow
[2024-03-03 11:37] LABS: Body Fluid Glucose 143 mg/dl; Body Fluid LDH 99 U/L; Body Fluid Protein < 2.0 g/dl
--- NOTE | 2024-03-03 11:37 | PTCARENOTE ---
pt returned from IR , R lung drainage of 900ml , R posterior back with dressing dry and intact, pt 02 decreased to 2L NC with sats of 95%
[2024-03-03 12:06] LABS: Troponin I 0.229 ng/ml
[2024-03-03] MEDS: PACERONE 200 MG PO ×3 (12:42→21:39)
[2024-03-03 12:51] LABS: Body Fluid Mononuclear 90.2 %; Body Fluid Polymorphonuclear 9.8 %; Body Fluid WBC 435 /CUMM
[2024-03-03 13:08] LABS: Body Fluid Second Tech AP
--- NOTE | 2024-03-03 13:37 | CM ---
CM following re: discharge planning.
Discussed in rounds, reviewed pt's chart, met with pt.
Pt is an 88 year old male, admitted with primary dx of Acute hypoxemic respiratory failure requiring noninvasive mechanical ventilation and supplemental oxygen.
Pt reports he lives alone in an independent apartment at [facility], has 2 supportive sons: one lives locally and another lives in [place]. Pt described himself as independent in all areas [employer]UC[employer]. No DME, VN or SNF history.
PCP: Harsha Oliva
Pharmacy: [facility].
D/C plan: return back to his independent apartment at [facility] with anticipated no needs.
--- NOTE | 2024-03-03 14:25 | W.PN.UPDATE ---
Addendum entered and electronically signed by Raulito Stanton MD 03/03/24 14:54:
Off o2 per RN, transfer to IVU and not IMU.
Original Note:
Update Note
Progress Note Update
Nonbillable note
Lab/images/notes reviewed
Heart failure exacerbation -CT chest reviewed signs of pulmonary edema. Patient hypoxic on mid flow. Being aggressively diuresed. Repeat echocardiogram pending
Paroxysmal A-fib -underwent cardioversion on 03/02. Remains in normal sinus rhythm remains in normal sinus rhythm with some tachycardia. Continue monitoring on telemetry. Continue Eliquis.
Sclerotic spine lesion -patient with history of prostate cancer s/p TURP, CT abdomen pelvis on 02/21 showing some sclerotic spinal lesions suspicious of metastatic prostate cancer. Will discuss with his primary oncologist. Check PSA. Of note bone
scan in 2019 was negative for any metastatic prostate disease
Right pleural effusion -underwent 900 cc of thoracentesis. Transudative in nature.
Acute hypoxic respiratory failure -wean off oxygen as possible.
Transfer to IMU
--- NOTE | 2024-03-03 17:52 | PTCARENOTE ---
no change in assessments pt is oob in chair tolerating well, off of oxygen , sats 96%
[2024-03-03 20:03] LABS: Troponin I 0.222 ng/ml
[2024-03-03] MEDS: LIPITOR 10 MG PO (21:38)
[2024-03-04] VITALS (52 sets, daily range): BP systolic 81–154; BP diastolic 41–134; BMI 23.3
[2024-03-04 04:47] LABS: Hematocrit 31.8 % (39.0-52.0); Hemoglobin 11.2 g/dL (13.0-18.0); Mean Corp Hgb Conc. 35.2 g/dL (33.0-37.0); Mean Corpuscular Hgb 32.1 pg (27.0-31.0); Mean Corpuscular Volume 91.1 fL (80.0-94.0); Mean Platelet Volume 10.9 fL (7.4-10.4); Platelet Count 228 10^3/uL (130-400); Red Blood Cell Count 3.49 10^6/uL (4.70-6.10); Red Cell Dist. Width 14.4 % (11.5-14.5); White Blood Cell Count 13.9 10^3/uL (4.8-10.8)
[2024-03-04] MEDS: MAALOX 30 ML PO (05:07)
[2024-03-04 05:20] LABS: Blood Urea Nitrogen 29 mg/dl (9-20); Carbon Dioxide 22 mmol/L (22-30); Estimated Creatinine Clearance 55 ml/min; Potassium 4.5 mmol/L (3.5-5.1); eGFR > 60.00
[2024-03-04 05:36] LABS: Chloride 102 mmol/L (98-107); Glucose 133 mg/dl (70-99); Sodium 133 mmol/L (135-145)
--- NOTE | 2024-03-04 05:41 | PTCARENOTE ---
03/04/24 - received pt from day shift RN, patient OOB to chair, alert and verbal, able to make needs known. patient sat OOB until 11pm and offered no c/o pain or discomfort. patient brushed teeth and washed face and was asst x 1 back to bed, condom
cath replaced, no skin breakdown noted.
patient had c/o discomfort/gas/heartburn, new order received for maalox, labs drawn, no new orders at this time.
[2024-03-04] MEDS: NSS (PRESERVATIVE FREE) 10 ML IV (07:33)
[2024-03-04] MEDS: TOPROL XL 50 MG PO (07:33)
[2024-03-04] MEDS: LOW STRENGTH ASPIRIN 81 MG PO (07:33)
[2024-03-04] MEDS: PACERONE 200 MG PO (07:33)
[2024-03-04] MEDS: PROTONIX IV 40 MG IV (07:33)
[2024-03-04] MEDS: LASIX 40 MG IV (07:33)
[2024-03-04] MEDS: FLOMAX 0.400000000000000022 MG PO (07:33)
[2024-03-04] MEDS: ELIQUIS 5 MG PO ×2 (07:33→19:38)
[2024-03-04] MEDS: MIRALAX 17 GRAMS PO (07:34)
--- NOTE | 2024-03-04 08:27 | PTCARENOTE ---
pt aaox3. states no pain and breath feels better. oob in chair. breath sounds diminished with crackles at the base. room air. trace edema in feet. reviewed plan of care with pt. ritikaib with paced beats noted on monitor.
--- NOTE | 2024-03-04 08:32 | W.PN.CARDCBS ---
Today's Communication / Plan
-
Continue Toprol, amiodarone, and Eliquis.
Restart losartan 25 mg daily.
Continue IV Lasix for another 24 hours and switch to 40 mg p.o. daily in a.m.
Creatinine is normal
LVEF has depressed to 30%. Will need to consider ischemic evaluation as outpatient
Impression / Plan
-
Primary Log Handling Equipment Operator: Dr. Beltre
Assessment:
Presentation with SOB
Acute hypoxic respiratory failure
Acute HFpEF with B/L pleural effusions by imaging
Leukocytosis
Elevated troponin
Paroxysmal atrial fibrillation
Status post cardioversion 03/02/2024
Chronic anticoagulation with Eliquis
History of VT 05/2023 resolved with addition of beta-malaika
Hypertension
Sick sinus syndrome with history of [employer] DC pacemaker
Moderate AI by echo in 2022
Hyperlipidemia
History of prostate cancer
Lung nodule
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
Pancreatic calcifications by CTAP
ECHO 02/25/23: EF 62%, mildly enlarged RV, severely dilated left atrium, mildly dilated right atrium, mild MR, moderate AR, mild TR, PAP 25 to 30 mmHg, dilated aortic root at 4.0 cm
Echocardiogram March 03, 2024, EF 28% with global hypokinesis, dilated RV, mild MR, moderate AI, PA pressure 30-35
Plan:
-He has diuresed and clinically is improved. Echocardiogram with newly reduced ejection fraction of approximately 30%.
-Continue amiodarone and metoprolol. Will restart losartan at 25 mg daily. Will check cost of Jardiance. Would continue IV Lasix for another 24 hours and then switch to 40 mg p.o. daily.
-would consider for OP ischemic evaluation. It would be reasonable to consider cardiac catheterization on him. Will consider this as an outpatient. With recent cardioversion would avoid interruption of Eliquis if possible
-Continue Eliquis.
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 would recommend oncology evaluation
-Okay to transfer out of ICU
Progress Note - Log Handling Equipment Operator
Subjective
Date of Service: March 04, 2024
He does feel better and remains in sinus rhythm.
Objective
Labs:
03/04/24 04:33
03/04/24 04:33
Labs
Hgb 11.2 g/dL (13.0-18.0) L 03/04/24 04:33
Hct 31.8 % (39.0-52.0) L 03/04/24 04:33
Plt Count 228 10^3/uL (130-400) 03/04/24 04:33
PT 20.3 Sec (11.4-14.6) H 03/03/24 04:44
INR 1.75 03/03/24 04:44
APTT 34.0 Sec (23.4-35.0) 03/03/24 04:44
Sodium 133 mmol/L (135-145) L 03/04/24 04:33
Potassium 4.5 mmol/L (3.5-5.1) 03/04/24 04:33
BUN 29 mg/dl (9-20) H 03/04/24 04:33
Creatinine 0.9 mg/dL (0.7-1.3) 03/04/24 04:33
Glucose 133 mg/dl (70-99) H 03/04/24 04:33
Troponins
03/02/24 03/03/24 03/03/24
22:42 01:17 04:44
Troponin I 0.103 H* Cancelled 0.220 H* D
03/03/24 03/03/24 03/03/24
07:17 11:30 13:17
Troponin I Cancelled 0.229 H* Cancelled
03/03/24
19:27
Troponin I 0.222 H*
Vital Signs and I&O:
Vital Signs
Temp Pulse Resp BP Pulse Ox
98.1 F 76 18 110/76 97
03/04/24 07:30 03/04/24 08:15 03/04/24 08:15 03/04/24 08:00 03/04/24 08:15
Vital Signs
Temp Pulse Resp BP Pulse Ox
98.1 F 76 18 110/76 97
03/04/24 07:30 03/04/24 08:15 03/04/24 08:15 03/04/24 08:00 03/04/24 08:15
Intake & Output
03/02/24 03/03/24 03/04/24 03/05/24
06:59 06:59 06:59 06:59
Intake Total 100 / 100
Output Total 875 / 875 1000 / 1000
Balance -875 / -875 -900 / -900
Physical Exam
Physical Exam
GEN: No distress, awake, Ox3
HEENT: supple, anicteric, mmm
LUNGS: CTA, no wheezes/rales
CV: Reg, S1/S2, 1/6 syst LSB, S3+
ABD: soft, BS+, NT/ND
EXT: No edema
NEURO: Gross non-focal
SKIN: No rash
--- NOTE | 2024-03-04 08:50 | W.PN.HOSP.TC ---
Today's Communication/Plan
-
continue diuretics
f/u weight cr
transfer to IVU
Assessment / Plan
Assessment / Plan
Patient is an 88y M with PMH significant for SSS, paroxysmal A-Fib and hypertension who presents to ED complaining of worsening SOB following DCCV earlier in the day.
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
Acute Hypoxemic Respiratory Failure secondary to the above
Bilateral Pleural Effusions secondary to the above
- able to be weaned off of bipap , on RA
- underwent thoracentesis of 900ml transudative fluid
- TTE showing EF down to 28% ,ischemic eval outpatient
- Maintain on IV lasix per cards, likely transition to oral tomorrow
- f/u weight/cr
Leukocytosis
- Likely stress response. Patient is afebrile and denies any recent complaints c/w infection.
- Observe off of abx for now and follow for any new complaints, fevers, etc.
Non-Ischemic Myocardial Injury
- Mild troponin elevation likely combination of cardioversion and current CHF exacerbation.
- Trop trending around 0.22
Paroxysmal Atrial Fibrillation
SSS s/p PPM
- Stable. Remains in sinus rhythm, albeit with frequent ventricular and atrial ectopy.
- Continue to monitor on telemetry.
- Continue metoprolol.
- Continue Eliquis for stroke risk reduction.
Benign Hypertension
- Currently significantly elevated - likely due to combination of dyspnea / distress and hypervolemia.
- Avoid nitrates as noted (x 48 hours) given daily tadalafil use.
- Continue usual home antihypertensives plus efforts at diuresis.
- Adjust regimen as needed for adequate BP control.
History of Prostate Cancer
- Hold tadalafil as noted above.
- Continue tamsulosin.
- Bladder scan protocol.
Hyponatremia
- mild, monitor
DVT Prophylaxis: On Eliquis
Code Status: Full
Anticipated Discharge: 24 - 48 hours
Subjective/Interval History
-
Date of Service: March 04, 2024
feeling better
off of o2
some dyspnea on exertion
no chest pain/palpitation
Objective Data
-
Labs:
Laboratory Results
03/04/24
04:33
WBC 13.9 H
Hgb 11.2 L
Hct 31.8 L
Plt Count 228
Sodium 133 L
Potassium 4.5
Chloride 102
Carbon Dioxide 22
BUN 29 H
Creatinine 0.9
Glucose 133 H
Calcium 9.0
Vital Signs:
Vital Signs
Temp Pulse Resp BP Pulse Ox
98.1 F 76 18 110/76 97
03/04/24 07:30 03/04/24 08:15 03/04/24 08:15 03/04/24 08:00 03/04/24 08:15
I&O
03/03/24 03/04/24 03/05/24
06:59 06:59 06:59
Intake Total 100 / 100
Output Total 875 / 875 1000 / 1000
Balance -875 / -875 -900 / -900
Review of Systems
-
Respiratory: Reports Trouble Breathing
Cardiac: Reports No Symptoms
Abdomen/GI: Reports No Symptoms
Physical Exam
-
General: No Apparent Distress and Obese
HEENT: Oxygen
Respiratory: Crackles
Cardiac: S1/S2 and Irregular Rhythm; Negative Murmur
GI: Soft, Nontender and Nondistended
Musculoskeletal: Edema, Right Lower Extrem and Edema, Left Lower Extrem
Neuro: Awake, AO x 3 and No Motor Deficits
[2024-03-04] MEDS: COZAAR 25 MG PO (09:56)
--- NOTE | 2024-03-04 10:38 | PTCARENOTE ---
pt hr now 130-[address] Stanton and dr Ricardo notified. ekg done meds ordered.
[2024-03-04] MEDS: CORDARONE 103 MG IV (11:13)
--- NOTE | 2024-03-04 11:46 | PTCARENOTE ---
pt transferred to ivu report called cell phone hearing aids and belongings sent with pt
--- NOTE | 2024-03-04 13:50 | PTCARENOTE ---
Patient went into VT. Unresponsive. CODE 9 called. CPR initiated and pads placed on patient. After a couple seconds patient became responsive. IV amio gtt started, labs drawn, EKG done, and Magnesium ordered. Code 9 cancelled. Continue to
monitor.
[2024-03-04 13:55] LABS: Glucose - Point of Care 161 mg/dl (70-99)
--- NOTE | 2024-03-04 14:03 | W.PN.UPDATE ---
Update Note
Progress Note Update
Called to see patient regarding sustained ventricular tachycardia and syncope. The patient had broken and was back in afib upon arrival. Blood pressure currently stable.
Starting IV amiodarone drip now. Will check labs, electrolytes, and troponin. Patient is awake and alert. Ventricular rates remain elevated.
He currently is pain-free. Continue Eliquis with recent cardioversion for today.
We will likely need to pursue an ischemic evaluation during this hospitalization.
Discussed with nursing and hospitalist.
CC time 31 min
[2024-03-04] MEDS: CORDARONE 518 MG IV (14:06)
[2024-03-04] MEDS: MAGNESIUM SULFATE 50 IV (14:10)
--- NOTE | 2024-03-04 14:25 | PTCARENOTE ---
Patient had another episode of VT. Patient unresponsive. VT self terminated. No shock needed. Micah aware and came to bedside. IV lopressor given.
[2024-03-04 14:34] LABS: Troponin I 0.109 ng/ml
[2024-03-04] MEDS: LOPRESSOR 2.5 MG IV (14:50)
[2024-03-04 14:56] LABS: Blood Urea Nitrogen 27 mg/dl (9-20); Calcium 8.8 mg/dl (8.4-10.2); Carbon Dioxide 24 mmol/L (22-30); Chloride 101 mmol/L (98-107); Estimated Creatinine Clearance 62 ml/min; Glucose 167 mg/dl (70-99); Magnesium 1.8 mg/dl (1.6-2.3); Phosphorus 4.3 mg/dl (2.5-4.5); Potassium 3.8 mmol/L (3.5-5.1); Sodium 134 mmol/L (135-145); eGFR > 60.00
--- NOTE | 2024-03-04 14:56 | W.PN.UPDATE ---
Update Note
Progress Note Update
Code 9 was called at 1400
Patient apparently was lying in bed when all of a sudden patient lost consciousness
Telemetry showing patient having sustained V. tach
RN initiated chest compression and ROSC was achieved. Did not require any IV epinephrine/shocking
By the time in the room Code 9 team present and patient awake and communicative.
AED pad applied encourage cart at bedside.
Patient denies of having ongoing chest pain/shortness of breath/dizziness
Telemetry showing patient in A-fib with RVR
Patient got on oral amiodarone 200 mg in the morning, order active for patient to be started on amiodarone drip
Ordering 2 g of magnesium IV
Urgent repeat check BMP/mag/phosphorus/troponin
Repeat EKG ordered
Cardiology at bedside and evaluating patient as well.
Gurmeet seymour notified - lives in [place],
--- NOTE | 2024-03-04 15:05 | PTCARENOTE ---
VT episode again. Self terminated to Afib HR 120's. MD aware. Will continue to monitor. Repleated K. Hold evening dose of lasix.
--- NOTE | 2024-03-04 15:21 | CHAP ---
Paged for Code 9. Chad responded well. He was calm and conversational afterward. Talked with him briefly about his situation at [employer], his family and his community involvements. He welcomed prayer - I asked God's blessings and protection for
him.
[2024-03-04] MEDS: KCL ELIXIR 40 MEQ PO (16:25)
[2024-03-04] MEDS: LASIX IV ×2 (16:25→16:53)
[2024-03-04] MEDS: PACERONE PO (16:54)
[2024-03-04] MEDS: LIPITOR 10 MG PO (21:44)
[2024-03-05] VITALS (16 sets, daily range): BP systolic 89–119; BP diastolic 61–89; BMI 22.1
[2024-03-05 05:24] LABS: Hematocrit 33.5 % (39.0-52.0); Hemoglobin 11.6 g/dL (13.0-18.0); Mean Corp Hgb Conc. 34.6 g/dL (33.0-37.0); Mean Corpuscular Hgb 32.3 pg (27.0-31.0); Mean Corpuscular Volume 93.3 fL (80.0-94.0); Mean Platelet Volume 11.3 fL (7.4-10.4); Platelet Count 228 10^3/uL (130-400); Red Blood Cell Count 3.59 10^6/uL (4.70-6.10); Red Cell Dist. Width 14.4 % (11.5-14.5); White Blood Cell Count 12.7 10^3/uL (4.8-10.8)
[2024-03-05 05:41] LABS: Blood Urea Nitrogen 35 mg/dl (9-20); Calcium 8.8 mg/dl (8.4-10.2); Carbon Dioxide 22 mmol/L (22-30); Chloride 103 mmol/L (98-107); Estimated Creatinine Clearance 48 ml/min; Glucose 151 mg/dl (70-99); Potassium 4.7 mmol/L (3.5-5.1); Sodium 132 mmol/L (135-145); eGFR > 60.00
--- NOTE | 2024-03-05 08:06 | W.PN.CARDCBS ---
Today's Communication / Plan
-
Continue IV amiodarone. Restart oral amiodarone 200 mg p.o. 3 times daily.
Continue Toprol 50 mg daily.
Hold Eliquis and start IV heparin.
Plan for right and left heart catheterization in a.m.
Hold losartan.
Switch Lasix to 40 mg p.o. daily.
Impression / Plan
-
Primary Motor Assembly Supervisor: Dr. Beltre
Assessment:
Presentation with SOB
Acute hypoxic respiratory failure
Acute HFpEF with B/L pleural effusions by imaging
Sustained ventricular tachycardia with syncope
Leukocytosis
Elevated troponin
Paroxysmal atrial fibrillation
Status post cardioversion 03/02/2024
Chronic anticoagulation with Eliquis
History of VT 05/2023 resolved with addition of beta-malaika
Hypertension
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
Moderate AI by echo in 2022
Hyperlipidemia
History of prostate cancer
Lung nodule
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
Pancreatic calcifications by CTAP
ECHO 02/25/23: EF 62%, mildly enlarged RV, severely dilated left atrium, mildly dilated right atrium, mild MR, moderate AR, mild TR, PAP 25 to 30 mmHg, dilated aortic root at 4.0 cm
Echocardiogram March 03, 2024, EF 28% with global hypokinesis, dilated RV, mild MR, moderate AI, PA pressure 30-35
Plan:
-Events of yesterday noted. Patient had multiple episodes of sustained ventricular tachycardia and syncope. He was started on IV amiodarone and ultimately his VT improved.
-He remains in A-fib with borderline elevated rates.
-With sustained VT and a new cardiomyopathy we will proceed with a right and left heart catheterization in the a.m.
-Hold Eliquis and start IV heparin with recent cardioversion
-Will continue oral amiodarone 200 mg p.o. 3 times daily. Continue Toprol. Hold losartan.
-His volume status is much improved. Will switch Lasix to 40 mg p.o. daily. Creatinine remains normal.
-I suspect he may have multivessel coronary artery disease.
-Patient desires to be aggressive with his medical care. He states he was very functional several months ago.
-After cardiac cath will need to make a decision regarding pacemaker and need for ICD.
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 will need eventual oncology evaluation
Progress Note - Motor Assembly Supervisor
Subjective
Date of Service: March 05, 2024
Overall felt better overnight. Breathing is stable and no further episodes of ventricular tachycardia or syncope.
Objective
Labs:
03/05/24 04:36
03/05/24 04:36
Labs
Hgb 11.6 g/dL (13.0-18.0) L 03/05/24 04:36
Hct 33.5 % (39.0-52.0) L 03/05/24 04:36
Plt Count 228 10^3/uL (130-400) 03/05/24 04:36
PT 20.3 Sec (11.4-14.6) H 03/03/24 04:44
INR 1.75 03/03/24 04:44
APTT 34.0 Sec (23.4-35.0) 03/03/24 04:44
Sodium 132 mmol/L (135-145) L 03/05/24 04:36
Potassium 4.7 mmol/L (3.5-5.1) 03/05/24 04:36
BUN 35 mg/dl (9-20) H 03/05/24 04:36
Creatinine 1.0 mg/dL (0.7-1.3) 03/05/24 04:36
Glucose 151 mg/dl (70-99) H 03/05/24 04:36
Troponins
03/02/24 03/03/24 03/03/24
22:42 01:17 04:44
Troponin I 0.103 H* Cancelled 0.220 H* D
03/03/24 03/03/24 03/03/24
07:17 11:30 13:17
Troponin I Cancelled 0.229 H* Cancelled
03/03/24 03/04/24
19:27 14:01
Troponin I 0.222 H* 0.109 H*
Vital Signs and I&O:
Vital Signs
Temp Pulse Resp BP Pulse Ox
97.5 F 102 20 100/89 99
03/05/24 05:07 03/05/24 04:00 03/04/24 20:21 03/05/24 04:00 03/04/24 20:21
Vital Signs
Temp Pulse Resp BP Pulse Ox
97.5 F 102 20 100/89 99
03/05/24 05:07 03/05/24 04:00 03/04/24 20:21 03/05/24 04:00 03/04/24 20:21
Intake & Output
03/03/24 03/04/24 03/05/24 03/06/24
06:59 06:59 06:59 06:59
Intake Total 100 / 100 330 / 330
Output Total 875 / 875 1000 / 1000 1050 / 1050
Balance -875 / -875 -900 / -900 -720 / -720
Physical Exam
Physical Exam
GEN: No distress, awake, Ox3
HEENT: supple, anicteric, mmm
LUNGS: Scattered rhonchi
CV: Irreg, S1/S2, 1/6 syst LSB, S3+
ABD: soft, BS+, NT/ND
EXT: No edema
NEURO: Gross non-focal
SKIN: No rash
[2024-03-05] MEDS: COZAAR PO (09:10)
--- NOTE | 2024-03-05 09:10 | W.PN.HOSP.TC ---
Today's Communication/Plan
-
Maintained on oral diuretics
Follow weight and creatinine
on heparin drip
Monitor on tele
LHC/RHC tomorrow
Assessment / Plan
Assessment / Plan
Patient is an 88y M with PMH significant for SSS, paroxysmal A-Fib and hypertension who presents to ED complaining of worsening SOB following DCCV earlier in the day.
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
Acute Hypoxemic Respiratory Failure secondary to the above
Bilateral Pleural Effusions secondary to the above
- able to be weaned off of bipap , on RA
- underwent thoracentesis of 900ml transudative fluid
- TTE showing EF down to 28% ,ischemic eval outpatient
- f/u weight/cr, with down to 65.9 kg
-Patient having switch to oral Lasix 40mg/d today.
Sustained VT episode/Brief cardiac arrest on 03/04
-Code 9 was called on 03/04 at 1400 for sustained VT and LOC for < 1 min
-per RN few chest compression and patient restored to AFib/rvr
-Already got oral amiodarone dose in the morning for A-fib control that day. Was started on IV amiodarone drip
-Postarrest EKG did not show any new ST segment elevation. Troponin trending down.
-Cardiology planning to do LHC/RHC with new systolic dysfunction and episode of VT.
Paroxysmal Atrial Fibrillation w RVR
SSS s/p PPM
-Transition to oral amiodarone for rhythm control.
-On oral metoprolol 50 mg daily for rate control.
-DOAC changed to heparin drip for preparation of heart cath tomorrow
Leukocytosis
- Likely stress response. Patient is afebrile and denies any recent complaints c/w infection.
- Observe off of abx for now and follow for any new complaints, fevers, etc.
Non-Ischemic Myocardial Injury
- Mild troponin elevation likely combination of cardioversion and current CHF exacerbation.
- Trop trending around 0.22
Essential Hypertension
-Losartan to be held for heart cath.
-On Toprol daily only. As needed hydralazine if systolic blood pressure greater than 160
History of Prostate Cancer
S/p Prostate radiation
-Recent outpatient CT abdomen pelvis showing sclerotic spine spot on CT
-Bone scan in did not show any metastatic disease
-Follows up with Dr. Rudolph. Who is aware of findings - per patient PSA was normal and Dr. Rudolph was not concerned about metastatic disease.
-Also patient getting Lupron every few months and next dose in April.
-Patient have appointment Dr. Rudolph to follow-up.
Hyponatremia
- mild, monitor
DVT Prophylaxis: On Eliquis
Code Status: Full
Anticipated Discharge: > 48 hours
Subjective/Interval History
-
Date of Service: March 05, 2024
Patient resting comfortably in bed
Denies feeling dyspneic. On 2 L oxygen through nasal cannula
No other acute episodes of cardiac arrhythmia noted on telemetry.
Objective Data
-
Labs:
Laboratory Results
03/05/24 03/05/24
04:36 08:15
WBC 12.7 H Pending
Hgb 11.6 L Pending
Hct 33.5 L Pending
Plt Count 228 Pending
APTT Pending
Sodium 132 L
Potassium 4.7
Chloride 103
Carbon Dioxide 22
BUN 35 H
Creatinine 1.0
Glucose 151 H
Calcium 8.8
Vital Signs:
Vital Signs
Temp Pulse Resp BP Pulse Ox
97.6 F 132 20 119/88 100
03/05/24 09:03 03/05/24 08:00 03/05/24 09:03 03/05/24 08:00 03/05/24 09:05
I&O
03/04/24 03/05/24 03/06/24
06:59 06:59 06:59
Intake Total 100 / 100 330 / 330
Output Total 1000 / 1000 1050 / 1050
Balance -900 / -900 -720 / -720
Review of Systems
-
Respiratory: Reports No Symptoms
Cardiac: Reports No Symptoms
Abdomen/GI: Reports No Symptoms
Physical Exam
-
General: No Apparent Distress and Obese
HEENT: Oxygen (2L NC)
Respiratory: Crackles
Cardiac: S1/S2 and Irregular Rhythm; Negative Murmur
GI: Soft, Nontender and Nondistended
Musculoskeletal: Edema, Right Lower Extrem and Edema, Left Lower Extrem
Neuro: Awake, AO x 3 and No Motor Deficits
[2024-03-05] MEDS: LOW STRENGTH ASPIRIN 81 MG PO (09:11)
[2024-03-05] MEDS: TOPROL XL 50 MG PO (09:11)
[2024-03-05] MEDS: FLOMAX 0.400000000000000022 MG PO (09:12)
[2024-03-05] MEDS: PROTONIX IV 40 MG IV (09:12)
[2024-03-05] MEDS: NSS (PRESERVATIVE FREE) 10 ML IV (09:12)
[2024-03-05] MEDS: PACERONE 200 MG PO ×3 (09:13→22:18)
[2024-03-05] MEDS: LASIX 40 MG IV ×2 (09:15→10:00)
[2024-03-05 09:54] LABS: APTT 44.9 Sec (23.4-35.0)
[2024-03-05] MEDS: HEPARIN 25000 UNITS/250 ML IV (10:11)
[2024-03-05 11:25] LABS: PSA, Total - Diagnostic 1.32 ng/ml (0.0-4.0)
[2024-03-05] MEDS: CORDARONE 518 MG IV (15:16)
[2024-03-05 16:34] LABS: APTT 57.9 Sec (23.4-35.0)
--- NOTE | 2024-03-05 18:31 | PTCARENOTE ---
Pt remains on bedrest today, very easily fatigued with minimal movement (like turning on his side), using oxygen at 2L. Telemetry shows initially atrial fib then 100% atrial paced rhythm at a rate of 60 from 08:50 onwards. Amiodarone infusion and
oral amiodarone continues, right arm PICC line placed for IV amiodarone and prior IV device was removed. Pt on IV heparin infusion. Pt has a poor appetite for food and drinks minimal liquids, encouraged to increase this. Plan for cardiac cath on 03/06.
[2024-03-05] MEDS: LIPITOR 10 MG PO (22:17)
[2024-03-05 23:17] LABS: APTT 111.6 Sec (23.4-35.0)
[2024-03-06] VITALS (19 sets, daily range): BP systolic 100–119; BP diastolic 65–81; BMI 22.3
--- NOTE | 2024-03-06 01:47 | PTCARENOTE ---
Pt. continues to be A-paced in the 60's on the monitor, VSS. Amiodarone and heparin drips infusing as ordered. Pt. has some mild orthopnea and tires easily even when turning in bed, bedrest maintained. Pulse ox 95-97% on 2L. Plan for cardiac
cath later this morning; plan of care discussed with pt., understanding verbalized. Pt. currently sleeping.
[2024-03-06 06:24] LABS: Hematocrit 31.6 % (39.0-52.0); Mean Corp Hgb Conc. 34.8 g/dL (33.0-37.0); Mean Corpuscular Hgb 31.9 pg (27.0-31.0); Mean Corpuscular Volume 91.6 fL (80.0-94.0); Mean Platelet Volume 11.1 fL (7.4-10.4); Platelet Count 220 10^3/uL (130-400); Red Blood Cell Count 3.45 10^6/uL (4.70-6.10); Red Cell Dist. Width 14.5 % (11.5-14.5); White Blood Cell Count 11.4 10^3/uL (4.8-10.8)
[2024-03-06 06:34] LABS: APTT 86.8 Sec (23.4-35.0)
[2024-03-06 06:50] LABS: Blood Urea Nitrogen 46 mg/dl (9-20); Calcium 8.4 mg/dl (8.4-10.2); Carbon Dioxide 20 mmol/L (22-30); Chloride 100 mmol/L (98-107); Estimated Creatinine Clearance 40 ml/min; Glucose 169 mg/dl (70-99); Potassium 4.3 mmol/L (3.5-5.1); Sodium 130 mmol/L (135-145); eGFR 58.17
[2024-03-06] MEDS: NSS (PRESERVATIVE FREE) 10 ML IV (08:55)
[2024-03-06] MEDS: PROTONIX IV 40 MG IV (08:55)
[2024-03-06] MEDS: LOW STRENGTH ASPIRIN 81 MG PO (08:56)
[2024-03-06] MEDS: TOPROL XL 50 MG PO (08:56)
[2024-03-06] MEDS: LASIX 40 MG PO (08:56)
[2024-03-06] MEDS: PACERONE 200 MG PO ×3 (08:56→21:27)
[2024-03-06] MEDS: FLOMAX 0.400000000000000022 MG PO (08:57)
--- NOTE | 2024-03-06 10:21 | ITS.CL.CATH ---
Guest Experience Captain - Catheterization
Cardiac Catheterization
Procedure Report:
LEFT AND RIGHT HEART CATHETERIZATION
Date of Procedure: March 06, 2024
Referring: Omar Marquez
PROCEDURES:
1. Left heart catheterization
2. Right heart catheterization
3. Physiologic assessment with iFR of OM1
INDICATION: Severe LV dysfunction and sustained VT with syncope.
ACCESS:
1. Right radial artery, 6 Fr. sheath
2. Right common femoral vein, 6Fr. sheath
HEMODYNAMICS : (mmHg)
RA (m) : 12
RV (s/d,m) : 34/8, 13
PA (s/d, m) : 36/17, 25
PCWP (m) : 23
PA saturation: 51.3% on room air
AO saturation: 92.2% on room air
RA saturation: 48.6% on room air
Cardiac Output : 3.2 L/min
Cardiac Index : 1.7 L/min/m-2
Systemic vascular resistance: 2134 dsc^(-5)
Pulmonary vascular resistance: 0.63 jorge unit
AO (s/d) : 116/73
LV (s/d) : 112/11
LVEDP : 23
CORONARY FINDINGS
DOMINANCE: Right
LEFT MAIN: The left main artery is a large-caliber vessel that gives rise to the left anterior descending artery and the left circumflex artery. There is minimal luminal irregularities.
LEFT ANTERIOR DESCENDING: The left anterior descending artery is a large-caliber vessel which gives rise to 1 major diagonal branch as it courses through the anterior interventricular groove towards the apex. There is mild diffuse atherosclerotic
plaque
CIRCUMFLEX: The left circumflex artery is a medium caliber vessel gives rise to 1 major small to medium caliber obtuse marginal branch. There is a focal 60 to 70% stenosis which was IFR negative at 0.99.
RIGHT CORONARY ARTERY: The right coronary artery is a large-caliber, dominant vessel which gives rise to the right posterior descending artery and the right posterolateral system. There is mild diffuse atherosclerotic plaque with coronary slow flow
without obstructive CAD.
HEMODYNAMIC ASSESSMENT OF THE OM1 WITH A VOLCANO OMNI WIRE: The origin of the left coronary artery was cannulated with a 6 Fr EBU 4 guide catheter. Intravenous heparin was administered and the ACT was followed during the procedure. Two hundred
micrograms of intracoronary nitroglycerin was given through the guide catheter. A Ruby Omni wire was advanced to the guide catheter tip and normalized in the left main. The Omni wire was then carefully manipulated across the stenosis in the OM1
with the iFR above the ischemic threshold serially measuring 0.99, 1.0. The Omni wire was then pulled back to the guide catheter where the Pd/Pa measured 1.0 confirming no baseline drift in pressure readings
SEDATION: 54 minutes of procedural sedation was utilized. An independent certified medical biller was present to assist with and help manage the patient's level of consciousness and physiologic status.
RADIATION SUMMARY: Fluoro Time (min): 15.4, Dose (mGy): 647.5, DAP (Gy.cm2) : 51.3
Closure Device:
1. Vascular band over right radial artery, 10 cc of air.
2. Manual pressure was held over the right common femoral vein with successful hemostasis.
CONCLUSIONS
1. Elevated right and left-sided filling pressures with low cardiac output in the setting of elevated systemic vascular resistance.
2. No obstructive coronary artery disease.
3. IFR negative 60% OM1 stenosis at iFR 0.99
RECOMMENDATIONS
1. Goal-directed medical therapy for nonischemic cardiomyopathy and optimization of invasive hemodynamics.
2. Discussion with electrophysiology in regards to ICD placement for secondary prevention.
3. Aggressive management of cardiovascular risk factors.
4. Outpatient referral for cardiac rehab.
Copy to: Omar Marquez
Makayla Mederos MD, FACC, [facility]
[2024-03-06 10:47] LABS: ACT-LR - POC 149 Seconds (116-155)
--- NOTE | 2024-03-06 10:53 | PTCARENOTE ---
received patient this am in bed, monitor shows apaced, VSS. patient has external pads placed but not on. IV amiodarone @ 16.7cc/hr via right dual lumen PICC. IV heparin was D/C'd new vehicle sales consultant to fish farm laborer. condom cath remains intact, draining yellow
urine. to fish farm laborer via bed.
[2024-03-06 11:25] LABS: ACT-LR - POC 199 Seconds (116-155)
[2024-03-06 11:40] LABS: ACT-LR - POC 263 Seconds (116-155)
[2024-03-06] MEDS: ALDACTONE 25 MG PO (12:56)
[2024-03-06] MEDS: HEPARIN 25000 UNITS/250 ML IV (13:35)
--- NOTE | 2024-03-06 13:39 | PTCARENOTE ---
restarted IV heparin drip at 900units /hr via right upper arm PICC as ordered. will obtain PTT at 1930.
--- NOTE | 2024-03-06 13:42 | PTCARENOTE ---
D/C'd IV amiodarone gtt. as ordered.
--- NOTE | 2024-03-06 14:35 | CM ---
Pricing on [employer] is $249 for the first month to meet his deductible, then its $36 a month. Patient is ageeable to the cost.
--- NOTE | 2024-03-06 14:36 | CM ---
Chart reviewed. Patient is independent of ADLS, lives in Independent Living at [place] [facility] [address] [place], 0 DME. Patient currently with no discharge needs. CM to follow
[2024-03-06] MEDS: LASIX 40 MG IV (15:28)
[2024-03-06] MEDS: FLUSH (NSS) 1 FLUSH IV (15:29)
--- NOTE | 2024-03-06 17:55 | W.PN.HOSP.TC ---
Today's Communication/Plan
-
R/LHC tomorrow
Assessment / Plan
Assessment / Plan
Patient is an 88y M with PMH significant for SSS, paroxysmal A-Fib and hypertension who presents to ED complaining of worsening SOB following DCCV earlier in the day.
Assessment:
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
Acute Hypoxemic Respiratory Failure secondary to the above
Bilateral Pleural Effusions secondary to the above
- able to be weaned off of bipap , on RA
- underwent thoracentesis of 900ml transudative fluid
- TTE showing EF down to 28%
- f/u weight/cr, with down to 65.9 kg
- Patient having switch to oral Lasix 40mg/d today.
- for R/LHC Cath tomorrow
Sustained VT episode/Brief cardiac arrest on 03/04
- Code 9 was called on 03/04 at 1400 for sustained VT and LOC for < 1 min
- per RN few chest compression and patient restored to AFib/rvr
- Already got oral amiodarone dose in the morning for A-fib control that day. Was started on IV amiodarone drip now on oral Amiodarone.
- Postarrest EKG did not show any new ST segment elevation. Troponin trending down.
- for R/LHC Cath tomorrow
Paroxysmal Atrial Fibrillation w RVR
SSS s/p PPM
- Transition to oral amiodarone for rhythm control.
- On oral metoprolol 50 mg daily for rate control.
- DOAC changed to heparin drip for preparation of heart cath tomorrow
Leukocytosis
- Likely stress response. Patient is afebrile and denies any recent complaints c/w infection.
- Observe off of abx for now and follow for any new complaints, fevers, etc.
Non-Ischemic Myocardial Injury
- Mild troponin elevation likely combination of cardioversion and current CHF exacerbation.
- Trop trending around 0.22
Essential Hypertension
- Losartan to be held for heart cath.
- On Toprol daily only. As needed hydralazine if systolic blood pressure greater than 160
History of Prostate Cancer
S/p Prostate radiation
- Recent outpatient CT abdomen pelvis showing sclerotic spine spot on CT
- Bone scan in did not show any metastatic disease
- Follows up with Dr. Rudolph. Who is aware of findings - per patient PSA was normal and Dr. Rudolph was not concerned about metastatic disease.
- Also patient getting Lupron every few months and next dose in April.
- Patient have appointment Dr. Rudolph to follow-up.
Hyponatremia
- mild, monitor
DVT Prophylaxis: Eliquis
Code Status: Full
Anticipated Discharge: > 48 hours
Subjective/Interval History
-
Date of Service: March 06, 2024
no complaints
was for cath but moved to tomorrow due to emergent cases
Objective Data
-
Labs:
Laboratory Results
03/06/24 03/06/24 03/06/24
05:59 12:00 19:30
WBC 11.4 H
Hgb 11.0 L
Hct 31.6 L
Plt Count 220
APTT 86.8 H Cancelled Pending
Sodium 130 L
Potassium 4.3
Chloride 100
Carbon Dioxide 20 L
BUN 46 H
Creatinine 1.2
Glucose 169 H
Calcium 8.4
Vital Signs:
Vital Signs
Temp Pulse Resp BP Pulse Ox
98.2 F 62 16 106/67 96
03/06/24 12:18 03/06/24 15:29 03/06/24 12:18 03/06/24 15:29 03/06/24 12:18
I&O
03/05/24 03/06/24 03/07/24
06:59 06:59 06:59
Intake Total 330 / 330 1556 / 1556
Output Total 1050 / 1050 650 / 650 400 / 400
Balance -720 / -720 906 / 906 -400 / -400
Physical Exam
-
General: No Apparent Distress
HEENT: Normocephalic and Atraumatic
Respiratory: Negative Wheezes
Cardiac: Regular Rhythm
GI: Soft
Neuro: AO x 3
Psych: Calm
Data Reviewed
-
Total Time Spent with Patient (in minutes): 42
Labs: Labs Reviewed by me
[2024-03-06 19:51] LABS: APTT 82.4 Sec (23.4-35.0)
[2024-03-06] MEDS: LIPITOR 10 MG PO (21:27)
--- NOTE | 2024-03-06 21:59 | PTCARENOTE ---
Pt. tolerating sitting OOB in chair without difficulty. A-paced on the monitor, VSS. Right radial and femoral cath site dressings CDI without hematoma; good peripheral circulation assessed.
[2024-03-07] VITALS (9 sets, daily range): BP systolic 106–130; BP diastolic 42–72; PULSE 61; O2SAT 98; BMI 21.4
[2024-03-07 03:18] LABS: Hematocrit 30.5 % (39.0-52.0); Hemoglobin 10.7 g/dL (13.0-18.0); Mean Corp Hgb Conc. 35.1 g/dL (33.0-37.0); Mean Corpuscular Hgb 31.7 pg (27.0-31.0); Mean Corpuscular Volume 90.2 fL (80.0-94.0); Mean Platelet Volume 11.1 fL (7.4-10.4); Platelet Count 207 10^3/uL (130-400); Red Blood Cell Count 3.38 10^6/uL (4.70-6.10); Red Cell Dist. Width 14.3 % (11.5-14.5); White Blood Cell Count 9.2 10^3/uL (4.8-10.8)
[2024-03-07 03:29] LABS: APTT 59.5 Sec (23.4-35.0)
[2024-03-07 03:44] LABS: Blood Urea Nitrogen 43 mg/dl (9-20); Calcium 8.1 mg/dl (8.4-10.2); Carbon Dioxide 26 mmol/L (22-30); Chloride 102 mmol/L (98-107); Estimated Creatinine Clearance 48 ml/min; Glucose 99 mg/dl (70-99); Potassium 3.5 mmol/L (3.5-5.1); Sodium 132 mmol/L (135-145); eGFR > 60.00
[2024-03-07] MEDS: LOW STRENGTH ASPIRIN 81 MG PO (09:15)
[2024-03-07] MEDS: PROTONIX 40 MG PO (09:15)
[2024-03-07] MEDS: ALDACTONE 25 MG PO (09:15)
[2024-03-07] MEDS: PACERONE 200 MG PO ×3 (09:15→22:40)
[2024-03-07] MEDS: TOPROL XL 25 MG PO (09:15)
[2024-03-07] MEDS: FLOMAX 0.400000000000000022 MG PO (09:15)
[2024-03-07] MEDS: FLUSH (NSS) 2 FLUSH IV (09:16)
[2024-03-07] MEDS: LASIX 40 MG IV (09:16)
[2024-03-07 09:30] LABS: APTT 93.1 Sec (23.4-35.0)
--- NOTE | 2024-03-07 09:53 | PTCARENOTE ---
Received patient this morning resting in bed. Required assist of two to stand on the scale, but patient feels like he was able to move better today than yesterday. Patient seen by cardiology today and plan is to upgrade his device to an ICD.
Assisted to the bedside commode, call shukla in reach.
--- NOTE | 2024-03-07 10:35 | CM ---
Chart reviewed. Patient is independent of ADLS, lives in Independent Living at [facility], DME. Patient with 2 supportive sons. PT/OT evaluation on hold yesterday 2/2 heart cath. Prior to Home PT vs SNF. CM to follow
--- NOTE | 2024-03-07 11:09 | PN.CDI ---
CDI
- -
CDI:
Physician Documentation Request
Admit Date: 03/03/24 00:32
Dear Doctor Luis Angel,
Patient admitted for acute heart failure exacerbation.
03/05 Cardiology PN: 'Acute HFpEF with B/L pleural effusions by imaging...ECHO 02/25/23: EF 62%, mildly enlarged RV, severely dilated left atrium, mildly dilated right atrium, mild MR, moderate AR, mild TR, PAP 25 to 30 mmHg, dilated aortic root at 4.0
cm. Echocardiogram March 03, 2024, EF 28% with global hypokinesis, dilated RV, mild MR, moderate AI, PA pressure 30-35'
03/06 Hospitalist PN: 'Acute on chronic systolic HF'
Please provide further specificity regarding the most likely type and acuity of CHF you are evaluating, treating or monitoring.
Type Acuity
Systolic Acute
Diastolic Chronic
Combined Systolic/Diastolic Acute on Chronic
Other Unable to Determine
Unable to Determine
Use of terms such as suspected, likely, concern for, or probable (associated with a specific diagnosis that is being evaluated, monitored, or treated as if it exists) are acceptable and can be coded in the inpatient setting, when documented at the
time of discharge.
Thank you,
Christina Palacios RN, BSN
CDI Specialist
Available via [place] text
Please use your independent medical judgment in providing your response.
--- NOTE | 2024-03-07 11:58 | W.PN.HOSP.TC ---
Today's Communication/Plan
-
NPO p MN for ICD
Assessment / Plan
Assessment / Plan
Patient is an 88y M with PMH significant for SSS, paroxysmal A-Fib and hypertension who presents to ED complaining of worsening SOB following DCCV earlier in the day.
Assessment:
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
Acute Hypoxemic Respiratory Failure secondary to the above
Bilateral Pleural Effusions secondary to the above
- able to be weaned off of bipap , on RA
- underwent thoracentesis of 900ml transudative fluid on 03/03/24
- TTE showing EF down to 28%
- f/u weight/cr, with down to 65.9 kg
- Patient having switch to oral Lasix 40mg/d today.
- s/p R/LHC 03/07/24 : Elevated right and left-sided filling pressures with low cardiac output in the setting of elevated systemic vascular resistance. No obstructive coronary artery disease.
Sustained VT episode/Brief cardiac arrest on 03/04
- Code 9 was called on 03/04 at 1400 for sustained VT and LOC for < 1 min
- per RN few chest compression and patient restored to AFib/rvr
- Already got oral amiodarone dose in the morning for A-fib control that day. Was started on IV amiodarone drip now on oral Amiodarone.
- Postarrest EKG did not show any new ST segment elevation. Troponin trending down.
- for ICD tomorrow for secondary prevention
Paroxysmal Atrial Fibrillation w RVR
SSS s/p PPM
- Transition to oral amiodarone for rhythm control.
- On oral metoprolol 50 mg daily for rate control.
- DOAC changed to heparin drip for preparation of heart cath tomorrow; IV heparin requires intensive monitoring
Leukocytosis
- Likely stress response. Patient is afebrile and denies any recent complaints c/w infection.
- Observe off of abx for now and follow for any new complaints, fevers, etc.
Non-Ischemic Myocardial Injury
- Mild troponin elevation likely combination of cardioversion and current CHF exacerbation.
- Trop trending around 0.22
Essential Hypertension
- Losartan to be held for heart cath.
- On Toprol daily only. As needed hydralazine if systolic blood pressure greater than 160
History of Prostate Cancer
S/p Prostate radiation
- Recent outpatient CT abdomen pelvis showing sclerotic spine spot on CT
- Bone scan in did not show any metastatic disease
- Follows up with Dr. Rudolph. Who is aware of findings - per patient PSA was normal and Dr. Rudolph was not concerned about metastatic disease.
- Also patient getting Lupron every few months and next dose in April.
- Patient have appointment Dr. Rudolph to follow-up.
Hyponatremia
- mild, monitor
DVT Prophylaxis: IV heparin
Code Status: Full
Anticipated Discharge: > 48 hours
Subjective/Interval History
-
Date of Service: March 07, 2024
s/p cath yesterday
no cp or sob currently
Objective Data
-
Labs:
Laboratory Results
03/07/24 03/07/24 03/07/24
02:41 09:09 15:00
WBC 9.2
Hgb 10.7 L
Hct 30.5 L
Plt Count 207
APTT 59.5 H 93.1 H Pending
Sodium 132 L
Potassium 3.5
Chloride 102
Carbon Dioxide 26
BUN 43 H
Creatinine 1.0
Glucose 99
Calcium 8.1 L
Vital Signs:
Vital Signs
Temp Pulse Resp BP Pulse Ox
97.8 F 60 16 118/69 98
03/07/24 11:21 03/07/24 11:25 03/07/24 11:21 03/07/24 11:25 03/07/24 11:21
I&O
03/06/24 03/07/24 03/08/24
06:59 06:59 06:59
Intake Total 1556 / 1556 119 / 119
Output Total 650 / 650 2300 / 2300 500 / 500
Balance 906 / 906 -2300 / -2300 -381 / -381
Physical Exam
-
General: No Apparent Distress
HEENT: Normocephalic and Atraumatic
Cardiac: Regular Rhythm and S1/S2
Genito-urinary: No Costovertebral Tender
Neuro: AO x 3
Hematologic / Lymphatic: No Lymphadenopathy
Psych: Calm
Data Reviewed
-
Total Time Spent with Patient (in minutes): 45
Labs: Labs Reviewed by me
--- NOTE | 2024-03-07 12:42 | W.PN.CARDCBS ---
Addendum entered and electronically signed by Esequiel Shaffer MD 03/07/24 16:46:
Reviewed events of last 48 hrs including his syncope associated with WCT at 280-300bpm. Recent CV for AF. would proceed to ICD upgrade tomorrow. He has a dual chamber PPM in place with underlying narrow QRS and utilizes the atrial lead. His RV lead
has noise on the lead and has largely been non functional. He has a PICC in the right arm (for amiodarone use) which is coursing through the right subclavian system through where we would plan device access for upgrade.
Discussed option of upgrade from DC PPM to DC ICD (narrow QRS 80msec). Will plan to add a right forearm IV in am and remove right sided PICC as he does not appear to need IV amiodarone any further and the PICC runs through the site of potential
subclavian access. Placed heparin on hold at midnight (recent CV) and placed NOAC on hold for now.
Patient understands and agrees.
Addendum entered and electronically signed by Marcial Beltre MD 03/07/24 13:49:
I saw and examined the patient.
The FILLING STATION LABORER or PA's note was reviewed and I agree with the note.
Comment: General: Well developed, well nourished in NAD.
Neck: Supple, no JVD, HJR, carotids +2 B/L, no bruits bilaterally.
Heart: Non displaced PMI, RRR, no murmurs, No S3, S4, no rubs.
Lungs: Clear to auscultation bilaterally, no wheeze, rhonchi, rubs bilaterally,
normal expiratory phase.
Extremities: No clubbing, cyanosis or edema bilaterally.
Neuro: Grossly nonfocal, awake, alert and oriented x3.
He is doing very well at present. Will continue IV Lasix. Continue treatment for cardiomyopathy. Plan is to upgrade device to ICD on 03/08/2024. Neurology feels that the prognosis for prostate cancer is very good and will be determined in years.
Will consider upgrade to BiV ICD if lead access as possible and if patient is paced most of the time. Discussed with primary service, EP, urology.
Original Note:
Today's Communication / Plan
-
upgrade device to ICD 03/08/24
continue IV heparin
continue po amiodarone
continue IV lasix diuresis
GDMT of NICM as able
Impression / Plan
-
Primary Cut Plug Packer: Dr. Beltre
Assessment:
Presentation with SOB
Acute hypoxic respiratory failure
Acute HFpEF with B/L pleural effusions by imaging
Sustained ventricular tachycardia with syncope
Leukocytosis
Elevated troponin, nonischemic myocardial injury
Paroxysmal atrial fibrillation
Status post cardioversion 03/02/2024
Chronic anticoagulation with Eliquis
History of VT 05/2023 resolved with addition of beta-malaika
Hypertension
Sick sinus syndrome with history of [employer] DC pacemaker
Moderate AI by echo in 2022
Hyperlipidemia
History of prostate cancer
Lung nodule
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
Pancreatic calcifications by CTAP
ECHO 02/25/23: EF 62%, mildly enlarged RV, severely dilated left atrium, mildly dilated right atrium, mild MR, moderate AR, mild TR, PAP 25 to 30 mmHg, dilated aortic root at 4.0 cm
Echocardiogram March 03, 2024, EF 28% with global hypokinesis, dilated RV, mild MR, moderate AI, PA pressure 30-35
Plan:
-Patient had multiple episodes of sustained ventricular tachycardia and syncope on 03/04. He was started on IV amiodarone and his VT burden has improved. transitioned back to po amiodarone 200mg TID
-s/p cardiac cath 03/06 with elevated R/L filling pressures, low CI, and elevated SVR, with nonobstructive CAD
-on review of tele overnight, apaced with 1 3-beat run of NSVT.
-with symptomatic sustained VT and NICM, will plan for upgrade of device to ICD 03/08/24
-remains on IV heparin for now. will transition back to eliquis post procedure when able
-continue toprol, aldactone. OP losartan on hold at present
-continue IV lasix 40mg daily. Cr stable at 1. prior to admission was not on diuretic therapy
-of note, patient with history of prostate cancer and CTAP with evidence of sclerotic lesions of lumbar spine concerning for osteoblastic mets, progressive compared to prior. follows with urology. d/w primary urologist via TT 03/07. prognosis felt to
be >1 year.
Progress Note - Cut Plug Packer
Subjective
Date of Service: March 07, 2024
no issues overnight noted
Objective
Labs:
03/07/24 02:41
03/07/24 02:41
Labs
Hgb 10.7 g/dL (13.0-18.0) L 03/07/24 02:41
Hct 30.5 % (39.0-52.0) L 03/07/24 02:41
Plt Count 207 10^3/uL (130-400) 03/07/24 02:41
PT 20.3 Sec (11.4-14.6) H 03/03/24 04:44
INR 1.75 03/03/24 04:44
APTT 93.1 Sec (23.4-35.0) H 03/07/24 09:09
Sodium 132 mmol/L (135-145) L 03/07/24 02:41
Potassium 3.5 mmol/L (3.5-5.1) 03/07/24 02:41
BUN 43 mg/dl (9-20) H 03/07/24 02:41
Creatinine 1.0 mg/dL (0.7-1.3) 03/07/24 02:41
Glucose 99 mg/dl (70-99) 03/07/24 02:41
Troponins
03/04/24
14:01
Troponin I 0.109 H*
Vital Signs and I&O:
Vital Signs
Temp Pulse Resp BP Pulse Ox
97.8 F 60 16 118/69 98
03/07/24 11:21 03/07/24 11:25 03/07/24 11:21 03/07/24 11:25 03/07/24 11:21
Vital Signs
Temp Pulse Resp BP Pulse Ox
97.8 F 60 16 118/69 98
03/07/24 11:21 03/07/24 11:25 03/07/24 11:21 03/07/24 11:25 03/07/24 11:21
Intake & Output
03/05/24 03/06/24 03/07/24 03/08/24
07:59 07:59 07:59 07:59
Intake Total 330 / 330 1556 / 1556 119 / 119
Output Total 1050 / 1050 650 / 650 2300 / 2300 500 / 500
Balance -720 / -720 906 / 906 -2300 / -2300 -381 / -381
[2024-03-07] MEDS: HEPARIN 25000 UNITS/250 ML IV (15:26)
[2024-03-07 16:20] LABS: APTT 85.2 Sec (23.4-35.0)
[2024-03-07] MEDS: LIPITOR 10 MG PO (22:40)
--- NOTE | 2024-03-07 23:50 | PTCARENOTE ---
Addendum entered by Celio Baxter RN 03/08/24 00:09:
Heparin infusing at 1150u/hr at start of shift, placed on hold ~2330 per MD.
Original Note:
Pt received at start of shift, HR A-paced. Pt OOB in chair with family/friends at bedside. Updated pt on plan of care, pt states understanding and has no questions about procedure tomorrow. Pre-procedure prep completed: site clipped, scrubbed with
CHG, new gown and linens. Pt denies any CP, SOB, or lightheadedness/dizziness. Informed to notify RN if any changes, call shukla within reach.
[2024-03-08] VITALS (10 sets, daily range): BP systolic 100–124; BP diastolic 61–76
[2024-03-08 04:43] LABS: Hematocrit 30.1 % (39.0-52.0); Hemoglobin 10.5 g/dL (13.0-18.0); Mean Corp Hgb Conc. 34.9 g/dL (33.0-37.0); Mean Corpuscular Hgb 32.1 pg (27.0-31.0); Mean Platelet Volume 10.3 fL (7.4-10.4); Platelet Count 183 10^3/uL (130-400); Red Blood Cell Count 3.27 10^6/uL (4.70-6.10); Red Cell Dist. Width 14.1 % (11.5-14.5); White Blood Cell Count 6.3 10^3/uL (4.8-10.8)
[2024-03-08 05:02] LABS: Blood Urea Nitrogen 31 mg/dl (9-20); Carbon Dioxide 28 mmol/L (22-30); Chloride 101 mmol/L (98-107); Estimated Creatinine Clearance 51 ml/min; Glucose 97 mg/dl (70-99); Potassium 3.2 mmol/L (3.5-5.1); Sodium 135 mmol/L (135-145); eGFR > 60.00
[2024-03-08] MEDS: KCL 40 MEQ PO (08:22)
[2024-03-08] MEDS: KCL 270 MEQ IV (08:22)
[2024-03-08] MEDS: ALDACTONE 25 MG PO (08:23)
[2024-03-08] MEDS: FLOMAX 0.400000000000000022 MG PO (08:23)
[2024-03-08] MEDS: PROTONIX 40 MG PO (08:24)
[2024-03-08] MEDS: PACERONE 200 MG PO ×3 (08:24→23:02)
[2024-03-08] MEDS: TOPROL XL 25 MG PO (08:24)
[2024-03-08] MEDS: LOW STRENGTH ASPIRIN 81 MG PO (08:24)
[2024-03-08] MEDS: LASIX 40 MG IV (08:24)
[2024-03-08] MEDS: FLUSH (NSS) 3 FLUSH IV (08:25)
--- NOTE | 2024-03-08 09:27 | PTCARENOTE ---
Patient resting in bed this morning. K+ of 3.[address] Plasencia, patient is receiving a K+ rider now and given PO dose as ordered. NPO x meds. Will have VAT removed PICC line when K+ rider complete before ICD upgrade.
--- NOTE | 2024-03-08 10:27 | W.PN.HOSP.TC ---
Today's Communication/Plan
-
upgrade PPM to ICD today
Assessment / Plan
Assessment / Plan
Patient is an 88y M with PMH significant for SSS, paroxysmal A-Fib and hypertension who presents to ED complaining of worsening SOB following DCCV earlier in the day.
Assessment:
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
Acute Hypoxemic Respiratory Failure secondary to the above
Bilateral Pleural Effusions secondary to the above
- able to be weaned off of bipap , on RA and satting well
- underwent thoracentesis of 900 ml transudative fluid on 03/03/24
- TTE showing EF down to 28%
- f/u weight/cr, with down to 65.9 kg
- Patient having switch to oral Lasix 40mg/d
- s/p R/LHC 03/07/24 : Elevated right and left-sided filling pressures with low cardiac output in the setting of elevated systemic vascular resistance. No obstructive coronary artery disease.
Sustained VT episode/Brief cardiac arrest on 03/04
- Code 9 was called on 03/04 at 1400 for sustained VT and LOC for < 1 min
- per RN few chest compression and patient restored to AFib/rvr
- Already got oral amiodarone dose in the morning for A-fib control that day. Was started on IV amiodarone drip now on oral Amiodarone.
- Postarrest EKG did not show any new ST segment elevation. Troponin trending down. Cath without obstructive CAD
- for upgrade of PPM to ICD today for secondary prevention
Paroxysmal Atrial Fibrillation w RVR
SSS s/p PPM
- continue amiodarone for rhythm control.
- continue metoprolol 50 mg daily for rate control.
- DOAC changed to heparin drip for procedures; IV heparin requires intensive monitoring
Leukocytosis
- Likely stress response. Patient is afebrile and denies any recent complaints c/w infection.
- Observe off of abx for now and follow for any new complaints, fevers, etc.
Non-Ischemic Myocardial Injury
- Mild troponin elevation likely combination of cardioversion and current CHF exacerbation.
- Trop trending around 0.22
Essential Hypertension
- Losartan to be held for heart cath.
- On Toprol daily only. As needed hydralazine if systolic blood pressure greater than 160
History of Prostate Cancer
S/p Prostate radiation
- Recent outpatient CT abdomen pelvis showing sclerotic spine spot on CT
- Bone scan in did not show any metastatic disease
- Follows up with Dr. Rudolph. Who is aware of findings - per patient PSA was normal and Dr. Rudolph was not concerned about metastatic disease.
- Also patient getting Lupron every few months and next dose in April.
- Patient have appointment Dr. Rudolph to follow-up.
Hyponatremia
- mild, monitor
DVT Prophylaxis: IV heparin
Code Status: Full
Anticipated Discharge: 24 - 48 hours
Subjective/Interval History
-
Date of Service: March 08, 2024
no chest pain or sob
no fever/chills
for ICD upgrade today
Objective Data
-
Labs:
Laboratory Results
03/08/24
04:24
WBC 6.3
Hgb 10.5 L
Hct 30.1 L
Plt Count 183
Sodium 135
Potassium 3.2 L
Chloride 101
Carbon Dioxide 28
BUN 31 H
Creatinine 0.9
Glucose 97
Calcium 8.0 L
Vital Signs:
Vital Signs
Temp Pulse Resp BP Pulse Ox
97.8 F 60 18 121/67 96
03/08/24 06:33 03/08/24 06:36 03/08/24 06:33 03/08/24 06:36 03/08/24 06:33
I&O
03/07/24 03/08/24 03/09/24
06:59 06:59 06:59
Intake Total 599 / 599
Output Total 2300 / 2300 500 / 500
Balance -2300 / -230 99 / 99
Physical Exam
-
General: No Apparent Distress
HEENT: Normocephalic and Atraumatic
Respiratory: Negative Wheezes
Cardiac: Regular Rhythm
GI: Soft
Genito-urinary: No Costovertebral Tender
Musculoskeletal: No Edema
Neuro: AO x 3
Hematologic / Lymphatic: No Lymphadenopathy
Psych: Calm
Data Reviewed
-
Total Time Spent with Patient (in minutes): 44
Labs: Labs Reviewed by me
--- NOTE | 2024-03-08 13:01 | PTCARENOTE ---
PICC line removed by VAT, #20 inserted RFA, #20 present in LFA. Patient sent for ICD upgrade.
--- NOTE | 2024-03-08 15:15 | ITS.CL.ICD ---
[employer] - ICD
Implantable Cardioverter Defibrillator
Procedure Report:
Date of Procedure: March 08, 2024
Patient : 1935
Procedures: Pocket revision, removal of chronic pacemaker generator, capping of the chronic RV pacing sleeve, addition of new RV ICD lead, and addition of a dual-chamber ICD generator
Indication: 1) secondary prevention ICD for VT at 230 ms associated with syncope which was sustained
Implants:
Pulse Generator: [employer]; Model# D233; Serial# [id number] implanted today
Atrial Lead: [employer]: Model# 4086; Serial# [id number] implanted 2006
Right Ventricular Lead: [employer]; Model# 0672; Serial# [id number] implanted today
Explanted generator: [employer] model L3 1 1 serial #[id number] implanted 2022
Capped Lead in the pocket: Guid[employer] model 4087 serial #[id number] implanted 2006 left capped in the pocket below the device
Technique: The patient was prepped and draped in the usual fashion. The pocket was revised to accommodate the larger generator. The patient had a paucity of subcutaneous tissue at baseline and the device was moved more inferiorly and towards the
axilla and we flapped the incision closed by mobilizing tissue on the superior and inferior aspects of the chronic incision. Local anesthetic was applied to the left prepectoral subcutaneous tissue. A 4 inch incision was made. The right axillary
vein was accessed without difficulty. 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 The new RV ICD
lead was placed in the RV apex and after adequate parameters were confirmed the lead was tied down. The leads were secured to the pectoralis muscle and fascia. The leads were appropriately attached to the new device. The chronic generator was
removed from the field. The chronic patient's RV lead was capped in the pocket. The pocket was irrigated with antibiotic solution. The device and leads were placed in the pocket and the device was secured to pectoralis muscle and facia. The
incision was closed with absorbable sutures. The estimated blood loss was minimal. There were no complications. Device based testing was performed as described below. IV contrast total: 5 cc.
System Analysis:
RA lead: P: 2.5 mV; Threshold: 1.4 V @ 0.5 ms; Impedance: 410 ohms.
RV lead: R: 13 mV; Threshold: 0.7 V @ 0.5 ms; Impedance: 589 ohms.
Final Programming: Tachy: VT/VF:188; Rock: DDDR 60-120.
Conclusion: Addition of an RV ICD lead, capping of the chronic pace sense RV lead, removal of chronic pacemaker generator, and pocket revision to accommodate the new dual-chamber ICD generator
Recommendation: Routine post ICD care.
cc: Dr. Marcial Beltre
--- NOTE | 2024-03-08 15:54 | PTCARENOTE ---
Patient returned from ICD upgrade at 1520. Aquacel dressing is dry and intact right upper chest with immobilizer in place. Post op EKG done, wants to rest now, monitoring VS, denies any pain, call shukla in reach.
[2024-03-08] MEDS: ANCEF 5 IV (20:33)
[2024-03-08] MEDS: FLUSH (NSS) 1 FLUSH IV (20:34)
[2024-03-08] MEDS: LIPITOR 10 MG PO (23:02)
--- NOTE | 2024-03-09 00:34 | PTCARENOTE ---
Pt. sat OOB in chair until midnight this shift, able to transfer from chair to bed with min assist. A- paced on the monitor, VSS. No complaints of CP / discomfort. Right chest well Aquacel dressing CDI without drainage or S&S hematoma, circulation
and sensation to right arm/hand intact. Immobilizer on. Right radial and femoral cath sites CECILIO and normal on assessment. Pt. very pleasant, states he feels much better. Hoping for discharge later today. Currently sleeping.
[2024-03-09 03:46] VITALS: BP 135/73
[2024-03-09 04:43] LABS: Hematocrit 35.4 % (39.0-52.0); Hemoglobin 12.2 g/dL (13.0-18.0); Mean Corp Hgb Conc. 34.5 g/dL (33.0-37.0); Mean Corpuscular Hgb 31.9 pg (27.0-31.0); Mean Corpuscular Volume 92.7 fL (80.0-94.0); Mean Platelet Volume 10.3 fL (7.4-10.4); Platelet Count 198 10^3/uL (130-400); Red Blood Cell Count 3.82 10^6/uL (4.70-6.10); Red Cell Dist. Width 14.6 % (11.5-14.5); White Blood Cell Count 8.9 10^3/uL (4.8-10.8)
[2024-03-09] MEDS: ANCEF 5 IV (04:57)
[2024-03-09 05:21] LABS: Blood Urea Nitrogen 25 mg/dl (9-20); Calcium 8.9 mg/dl (8.4-10.2); Carbon Dioxide 26 mmol/L (22-30); Chloride 103 mmol/L (98-107); Estimated Creatinine Clearance 58 ml/min; Glucose 100 mg/dl (70-99); Magnesium 2.2 mg/dl (1.6-2.3); Potassium 4.4 mmol/L (3.5-5.1); Sodium 137 mmol/L (135-145); eGFR > 60.00
[2024-03-09 06:00] VITALS: BMI 20.7
[2024-03-09 06:59] VITALS: BP 129/73
[2024-03-09] MEDS: ALDACTONE 25 MG PO (08:54)
[2024-03-09] MEDS: PACERONE 200 MG PO (08:54)
[2024-03-09] MEDS: TOPROL XL 25 MG PO (08:54)
[2024-03-09] MEDS: LOW STRENGTH ASPIRIN 81 MG PO (08:54)
[2024-03-09] MEDS: PROTONIX 40 MG PO (08:54)
[2024-03-09] MEDS: FLOMAX 0.400000000000000022 MG PO (08:54)
[2024-03-09] MEDS: LASIX IV (10:26)
--- NOTE | 2024-03-09 10:51 | W.PN.CARDCBS ---
Today's Communication / Plan
-
Eliquis 2.5 mg twice daily starting March 10 a.m.
Amiodarone 2 mg twice daily x 1 month at discharge and then lowered to 200 daily
Urology�[place] clinical issues defer to primary team
From cardiovascular Spectam stable for discharge with an outpatient wound check in 7 to 10 days
Impression / Plan
-
Primary Perforator Typist: Dr. Beltre
Assessment:
Presentation with SOB
Acute hypoxic respiratory failure
Acute HFpEF with B/L pleural effusions by imaging
Sustained ventricular tachycardia with syncope
Leukocytosis
Elevated troponin, nonischemic myocardial injury
Paroxysmal atrial fibrillation
Status post cardioversion 03/02/2024
Chronic anticoagulation with Eliquis
History of VT 05/2023 resolved with addition of beta-malaika
Hypertension
Sick sinus syndrome with history of [employer] DC pacemaker
Moderate AI by echo in 2022
Hyperlipidemia
History of prostate cancer
Lung nodule
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
Pancreatic calcifications by CTAP
ECHO 02/25/23: EF 62%, mildly enlarged RV, severely dilated left atrium, mildly dilated right atrium, mild MR, moderate AR, mild TR, PAP 25 to 30 mmHg, dilated aortic root at 4.0 cm
Echocardiogram March 03, 2024, EF 28% with global hypokinesis, dilated RV, mild MR, moderate AI, PA pressure 30-35
Plan:
-s/p upgrade to DC ICD. transitioned back to po amiodarone 200mg TID. 200mg bid at DC for 4 weeks then 200mg daily
-s/p cardiac cath 03/06 with elevated R/L filling pressures, low CI, and elevated SVR, with nonobstructive CAD
-Stable chest x-ray with intact leads and interrogation demonstrating stable RV ICD lead parameters
-The site is intact without hematoma. Would start Eliquis 2.5 mg twice daily on WednesdayMarch 10
-continue toprol, aldactone. OP losartan on hold at present
-Reasonable to consider discharge on Lasix 20 mg daily
-of note, patient with history of prostate cancer and CTAP with evidence of sclerotic lesions of lumbar spine concerning for osteoblastic mets, progressive compared to prior. follows with urology. d/w primary urologist via TT 03/07. prognosis felt to
be >1 year. He has a [place] catheter in place and defer to his urologist and primary team follow-up for this clinical issue. I have no objection to discharge from a cardiovascular perspective
Progress Note - Perforator Typist
Subjective
Date of Service: March 09, 2024
Total Time Spent with Patient (in minutes): Feels well status post device upgrade
Objective
Labs:
03/09/24 03:59
03/09/24 03:59
Labs
Hgb 12.2 g/dL (13.0-18.0) L 03/09/24 03:59
Hct 35.4 % (39.0-52.0) L 03/09/24 03:59
Plt Count 198 10^3/uL (130-400) 03/09/24 03:59
PT 20.3 Sec (11.4-14.6) H 03/03/24 04:44
INR 1.75 03/03/24 04:44
APTT 85.2 Sec (23.4-35.0) H 03/07/24 15:34
Sodium 137 mmol/L (135-145) 03/09/24 03:59
Potassium 4.4 mmol/L (3.5-5.1) D 03/09/24 03:59
BUN 25 mg/dl (9-20) H 03/09/24 03:59
Creatinine 0.8 mg/dL (0.7-1.3) 03/09/24 03:59
Glucose 100 mg/dl (70-99) H 03/09/24 03:59
Vital Signs and I&O:
Vital Signs
Temp Pulse Resp BP Pulse Ox
98 F 60 20 129/73 97
03/09/24 06:57 03/09/24 08:00 03/09/24 06:57 03/09/24 06:59 03/09/24 06:57
Vital Signs
Temp Pulse Resp BP Pulse Ox
98 F 60 20 129/73 97
03/09/24 06:57 03/09/24 08:00 03/09/24 06:57 03/09/24 06:59 03/09/24 06:57
Intake & Output
03/07/24 03/08/24 03/09/24 03/10/24
06:59 06:59 06:59 06:59
Intake Total 599 / 599 390 / 390
Output Total 2300 / 2300 500 / 500 3275 / 3275
Balance -2300 / -2300 99 / 99 -2885 / -2885
Physical Exam
Physical Exam
Physical Exam
General: no apparent distress, not acutely ill
Neck: supple. no meningeal signs. normal psoterior pharynx
Heart: s1/s2 regular rate and rhythm, no murmur. equal radial pulses.
Right chest wall device site clean dry and intact
Lungs: no acute respiratory distress. clear bilaterally
Abdomen: normal bowel sounds. not tender. no CVAT
Neuro: alert and oriented. no focal neurological deficits
Skin: no rash
Psychiatric: well kept. interactive and cooperative
Extremities: no edema. no calf tenderness. negative homans. good distal pulses
[2024-03-09] MEDS: LASIX 40 MG PO (10:52)
--- NOTE | 2024-03-09 11:22 | CM ---
Chart reviewed. Patient is independent of ADLS, lives in an apartment in [facility] at [facility], [facility]. Plan is for the patient to return home with [facility]. [facility] to follow
[2024-03-09 12:23] VITALS: BP 117/63
--- NOTE | 2024-03-09 12:52 | W.PN.HOSP.TC ---
Today's Communication/Plan
-
dc home/Vn today
Assessment / Plan
Assessment / Plan
Patient is an 88y M with PMH significant for SSS, paroxysmal A-Fib and hypertension who presents to ED complaining of worsening SOB following DCCV earlier in the day.
Assessment:
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
Acute Hypoxemic Respiratory Failure secondary to the above
Bilateral Pleural Effusions secondary to the above
- able to be weaned off of bipap , on RA and satting well
- underwent thoracentesis of 900 ml transudative fluid on 03/03/24
- TTE showing EF down to 28%
- f/u weight/cr, with down to 65.9 kg
- Patient having switch to oral Lasix 40mg/d
- s/p R/LHC 03/07/24 : Elevated right and left-sided filling pressures with low cardiac output in the setting of elevated systemic vascular resistance. No obstructive coronary artery disease.
Sustained VT episode/Brief cardiac arrest on 03/04
- Code 9 was called on 03/04 at 1400 for sustained VT and LOC for < 1 min
- per RN few chest compression and patient restored to AFib/rvr
- Already got oral amiodarone dose in the morning for A-fib control that day. Was started on IV amiodarone drip now on oral Amiodarone.
- Postarrest EKG did not show any new ST segment elevation. Troponin trending down. Cath without obstructive CAD
- s/p upgrade of PPM to ICD on 03/08/24 for secondary prevention
- outpatient device check in 7-10 days
Paroxysmal Atrial Fibrillation w RVR
SSS s/p PPM
- continue amiodarone for rhythm control.
- continue metoprolol 50 mg daily for rate control.
- DOAC changed to heparin drip for procedures; IV heparin requires intensive monitoring
Leukocytosis
- Likely stress response. Patient is afebrile and denies any recent complaints c/w infection.
- Observe off of abx for now and follow for any new complaints, fevers, etc.
Non-Ischemic Myocardial Injury
- Mild troponin elevation likely combination of cardioversion and current CHF exacerbation.
- Trop trending around 0.22
Essential Hypertension
- Losartan to be held for heart cath.
- On Toprol daily only. As needed hydralazine if systolic blood pressure greater than 160
History of Prostate Cancer
S/p Prostate radiation
- Recent outpatient CT abdomen pelvis showing sclerotic spine spot on CT
- Bone scan in did not show any metastatic disease
- Follows up with Dr. Rudolph. Who is aware of findings - per patient PSA was normal and Dr. Rudolph was not concerned about metastatic disease.
- Also patient getting Lupron every few months and next dose in April.
- Patient have appointment Dr. Rudolph to follow-up.
Hyponatremia
- mild, monitor
DVT Prophylaxis: IV heparin
Code Status: Full
More than 30 minutes spent in discharge including
Final examination of the patient
Summarizing hospital stay
Instructions for continuing care to all relevant caregivers
Preparation of discharge records, prescriptions, and referral forms
Total time spent (in minutes): 41
Anticipated Discharge: Today
Subjective/Interval History
-
Date of Service: March 09, 2024
feels well post-ICD upgrade procedure
wants to go home
Objective Data
-
Labs:
Laboratory Results
03/09/24
03:59
WBC 8.9
Hgb 12.2 L
Hct 35.4 L
Plt Count 198
Sodium 137
Potassium 4.4 D
Chloride 103
Carbon Dioxide 26
BUN 25 H
Creatinine 0.8
Glucose 100 H
Calcium 8.9
Vital Signs:
Vital Signs
Temp Pulse Resp BP Pulse Ox
98.3 F 60 20 117/63 97
03/09/24 12:24 03/09/24 12:23 03/09/24 12:24 03/09/24 12:23 03/09/24 12:24
I&O
03/08/24 03/09/24 03/10/24
06:59 06:59 06:59
Intake Total 599 / 599 390 / 390
Output Total 500 / 500 3275 / 3275
Balance 99 / 99 -2885 / -2885
Physical Exam
-
General: No Apparent Distress
HEENT: Normocephalic
Respiratory: Negative Wheezes or Rales
Cardiac: Regular Rhythm and S1/S2
GI: Soft
Neuro: AO x 3
Psych: Calm
Data Reviewed
-
Total Time Spent with Patient (in minutes): 41
Labs: Labs Reviewed by me
--- NOTE | 2024-03-09 12:56 | W.DS.TRANS ---
DC Summary - Repair Department Manager
-
Discharge Instructions:
Sleep Apnea Risk Intermediate
Discharge Diagnosis/Procedures cardiac arrest requiring Pacemaker upgrade to
ICD. acute CHF and pleural effusion s/p
thoracentesis 03/03
Diet 2 Gram Sodium,Restrict fluids to 64 oz,Low
Cholesterol
Additional Diets [id number]
Activity As tolerated
Driving Restrictions No driving for 1 week
Bathing Restrictions OK to Shower
Specialty Instructions Weigh Daily
Instructions:
Stand-Alone Forms: DC Inst - Implanted Device
Changes to Home Medications: No
Discharge Medications:
DC Medications w/original date entered in [employer]
atorvastatin 10 mg tablet 10 mg PO HS High Cholesterol 06/29/13
tamsulosin 0.4 mg capsule 0.4 mg PO DAILY #5 caps 07/18/14
cyclosporine 0.05 % eye drops 1 drp BOTH EYES Q12H Eye Condition 11/30/22
fluticasone propionate 50 mcg/actuation nasal spray,suspension 1 spray intranasal DAILY PRN nasal congestion 11/30/22
cholecalciferol (vitamin D3) 25 mcg (1,000 unit) tablet (Vitamin D3) 25 mcg PO DAILY Supplement 03/02/24
ginkgo biloba 60 mg capsule 60 mg PO DAILY 03/02/24
tadalafil 10 mg tablet 5 mg PO DAILY Urinary Issue 03/02/24
amiodarone 200 mg tablet 200 mg PO BID Arrhythmia #60 tabs 03/09/24
amiodarone 200 mg tablet 200 mg PO DAILY Arrhythmia #30 tabs 03/09/24
apixaban 2.5 mg tablet (Eliquis) 2.5 mg PO BID Blood clot prevention/tx #60 tabs 03/09/24
furosemide 40 mg tablet 40 mg PO DAILY Heart Failure #30 tabs 03/09/24
metoprolol succinate 25 mg tablet,extended release 24 hr 25 mg PO DAILY Heart Failure #30 tabs 03/09/24
spironolactone 25 mg tablet 25 mg PO DAILY Heart Failure #30 tabs 03/09/24
Home Medication Changes
Pending Results: No
Total time spent discharging patient (in min): 42
--- NOTE | 2024-03-09 14:46 | PTCARENOTE ---
Pt seen by Radha and Deena. Telemetry and IV devices removed. Discharge instructions reviewed with pt regarding activity and driving restrictions, wound care, medications and their new doses and possible side effects, CHF guidelines, reporting
cares and concerns and follow up appt's. Very good understanding verbalized. Pt escorted out via wheelchair and discharged to home.
== END 2024-03-09 14:49 | disposition home health service (06) | DRG 275 ==
LOC: IVU 00:32
PROVIDERS: Emergency Medicine; Hospitalist; Internal Medicine Cardiovascular Disease; Internal Medicine Critical Care Medicine; Internal Medicine Interventional Cardiology; Radiology Vascular & Interventional Radiology; ADMITTING PHYSICIAN Hospitalist; ATTENDING PHYSICIAN Internal Medicine; EMERGENCY PHYSICIAN Student in an Organized Health Care Education/Training Program; FAMILY PHYSICIAN Family Medicine; OTHER PHYSICIAN Internal Medicine Cardiovascular Disease; OTHER PHYSICIAN Internal Medicine Critical Care Medicine
PROC: 5A09357 Assistance with Respiratory Ventilation, Less than 24 Consecutive Hours, Continuous Positive Airway Pressure (ICD-10-PCS; 2024-03-02)
PROC: 0W993ZZ Drainage of Right Pleural Cavity, Percutaneous Approach (ICD-10-PCS; 2024-03-03)
PROC: 02HV33Z Insertion of Infusion Device into Superior Vena Cava, Percutaneous Approach (ICD-10-PCS; 2024-03-05)
PROC: 4A033BC Measurement of Arterial Pressure, Coronary, Percutaneous Approach (ICD-10-PCS; 2024-03-06)
PROC: 4A023N8 Measurement of Cardiac Sampling and Pressure, Bilateral, Percutaneous Approach (ICD-10-PCS; 2024-03-06)
PROC: B2111ZZ Fluoroscopy of Multiple Coronary Arteries using Low Osmolar Contrast (ICD-10-PCS; 2024-03-06)
PROC: B2151ZZ Fluoroscopy of Left Heart using Low Osmolar Contrast (ICD-10-PCS; 2024-03-06)
PROC: 0JH608Z Insertion of Defibrillator Generator into Chest Subcutaneous Tissue and Fascia, Open Approach (ICD-10-PCS; 2024-03-08)
PROC: 0JPT0PZ Removal of Cardiac Rhythm Related Device from Trunk Subcutaneous Tissue and Fascia, Open Approach (ICD-10-PCS; 2024-03-08)
PROC: 02HK3KZ Insertion of Defibrillator Lead into Right Ventricle, Percutaneous Approach (ICD-10-PCS; 2024-03-08)
PROC: 02PA3MZ Removal of Cardiac Lead from Heart, Percutaneous Approach (ICD-10-PCS; 2024-03-08)
DX: I11.0 Hypertensive heart disease with heart failure (principal); I46.2 Cardiac arrest due to underlying cardiac condition; J96.01 Acute respiratory failure with hypoxia; I50.23 Acute on chronic systolic (congestive) heart failure; J91.8 Pleural effusion in other conditions classified elsewhere; I47.20 Ventricular tachycardia, unspecified; E87.1 Hypo-osmolality and hyponatremia; I49.5 Sick sinus syndrome; I5A Non-ischemic myocardial injury (non-traumatic); I48.0 Paroxysmal atrial fibrillation; I35.1 Nonrheumatic aortic (valve) insufficiency; C61 Malignant neoplasm of prostate; I25.10 Atherosclerotic heart disease of native coronary artery without angina pectoris; E78.00 Pure hypercholesterolemia, unspecified; I42.8 Other cardiomyopathies; Z79.01 Long term (current) use of anticoagulants; Z79.899 Other long term (current) drug therapy; Z95.0 Presence of cardiac pacemaker
CPT/HCPCS: 88305; 32555; 33241; 33249; 71045; 71275; 80048; 80053; 80061; 82945; 82962; 83615; 83735; 83880; 83986; 84100; 84153; 84157; 84443; 84484; 85025; 85027; 85347; 85610; 85730; 87015; 87070; 87102; 87116; 87205; 88112; 88341; 88342; 89051; 92526; 92610; 93005; 93306; 93460; 93571; 94640; 94660; 96374; 96375; 97116; 97162; 97166; 97530; 99152; 99153; 99285; C1721; C1769; C1777; C1887; C1892; C1894; Q9967

== ENCOUNTER → 2024-03-15 11:29 | Outpatient (REF) | payer MEDICARE, OTHER, SELFPAY ==
[2024-03-15 13:26] LABS: Blood Urea Nitrogen 21 mg/dl (9-20); Calcium 8.9 mg/dl (8.4-10.2); Carbon Dioxide 29 mmol/L (22-30); Chloride 100 mmol/L (98-107); Glucose 93 mg/dl (70-99); Potassium 4.4 mmol/L (3.5-5.1); Sodium 135 mmol/L (135-145); eGFR > 60.00
== END ==
LOC: OLABPV 11:29
PROVIDERS: ATTENDING PHYSICIAN Family Medicine
DX: I50.20 Unspecified systolic (congestive) heart failure (principal)
CPT/HCPCS: 36415; 80048

== ENCOUNTER → 2024-04-19 11:56 | Outpatient (REF) | payer MEDICARE, OTHER, SELFPAY ==
[2024-04-19 13:56] LABS: PSA, Total - Diagnostic 2.91 ng/ml (0.0-4.0)
== END ==
LOC: OLABPV 11:56
PROVIDERS: ATTENDING PHYSICIAN Specialist
DX: R97.21 Rising PSA following treatment for malignant neoplasm of prostate (principal)
CPT/HCPCS: 36415; 84153

== ENCOUNTER → 2024-06-06 12:52 | Outpatient (REF) | payer MEDICARE, OTHER, SELFPAY | LOC: RCS 12:52 | PROVIDERS: ATTENDING PHYSICIAN Internal Medicine Cardiovascular Disease; FAMILY PHYSICIAN Family Medicine | DX: I42.9 Cardiomyopathy, unspecified (principal) | CPT/HCPCS: 93306 ==

== ENCOUNTER → 2024-07-26 11:10 | Outpatient (REF) | payer MEDICARE, OTHER, SELFPAY ==
[2024-07-26 11:52] LABS: % Basophils 0.6 % (0-2); % Eosinophils 1.3 % (0-6); % Immature Granulocytes 0.3 % (0-0.5); % Monocytes 9.7 % (1.7-9.3); % Neutrophils 68.1 % (42.2-75.2); Absolute Eosinophils 0.1 10^3/uL (0-0.7); Absolute Lymphocytes 1.3 10^3/uL (1.2-3.4); Absolute Monocytes 0.6 10^3/uL (0.1-0.6); Absolute Neutrophils 4.4 10^3/uL (1.4-6.5); Hematocrit 31.1 % (39.0-52.0); Hemoglobin 10.6 g/dL (13.0-18.0); Mean Corp Hgb Conc. 34.1 g/dL (33.0-37.0); Mean Corpuscular Hgb 31.5 pg (27.0-31.0); Mean Corpuscular Volume 92.3 fL (80.0-94.0); Mean Platelet Volume 10.1 fL (7.4-10.4); Nucleated Red Blood Cells % 0 % (-); Platelet Count 153 10^3/uL (130-400); Red Blood Cell Count 3.37 10^6/uL (4.70-6.10); Red Cell Dist. Width 13.5 % (11.5-14.5); White Blood Cell Count 6.4 10^3/uL (4.8-10.8)
[2024-07-26 12:08] LABS: ALT (SGPT) 19 U/L (0-50); AST (SGOT) 23 U/L (17-59); Albumin 3.5 g/dl (3.5-5.0); Alkaline Phosphatase 60 U/L (38-126); Blood Urea Nitrogen 14 mg/dl (9-20); Calcium 8.8 mg/dl (8.4-10.2); Carbon Dioxide 26 mmol/L (22-30); Chloride 108 mmol/L (98-107); Glucose 89 mg/dl (70-99); HDL Cholesterol 73 mg/dl; Iron 54 ug/dl (49-181); LDL Cholesterol, Calculated 69 mg/dl; Potassium 3.9 mmol/L (3.5-5.1); Sodium 142 mmol/L (135-145); Total Bilirubin 0.7 mg/dl (0.2-1.3); Total Cholesterol 151 mg/dl (50-199); Triglyceride 46 mg/dl (10-149); Very Low Density Lipoprotein 9 mg/dl (0-30); eGFR > 60.00
[2024-07-26 12:17] LABS: Percent Saturation 23 % (20-50); Total Iron Binding Capacity 233 ug/dl (261-462)
== END ==
LOC: OLABPV 11:10
PROVIDERS: ATTENDING PHYSICIAN Family Medicine
DX: D64.9 Anemia, unspecified (principal); C61 Malignant neoplasm of prostate; E78.2 Mixed hyperlipidemia; D72.819 Decreased white blood cell count, unspecified; I10 Essential (primary) hypertension
CPT/HCPCS: 36415; 80053; 80061; 83540; 83550; 85025

== ENCOUNTER → 2024-08-29 09:33 | Outpatient (REF) | payer MEDICARE, OTHER, SELFPAY | LOC: OLABPV 09:33 | PROVIDERS: ATTENDING PHYSICIAN Specialist | DX: C61 Malignant neoplasm of prostate (principal) | CPT/HCPCS: 36415; 84153 ==

== ENCOUNTER → 2024-09-13 14:19 | Outpatient (REF) | payer MEDICARE, OTHER, SELFPAY | LOC: RAD 14:19 | PROVIDERS: ATTENDING PHYSICIAN Family Medicine | DX: M79.605 Pain in left leg (principal); C61 Malignant neoplasm of prostate | CPT/HCPCS: 72110; 73502; 73552 ==

== ENCOUNTER → 2024-09-21 15:06 | Outpatient (REF) | payer MEDICARE, OTHER, SELFPAY | LOC: RAD 15:06 | PROVIDERS: ATTENDING PHYSICIAN Family Medicine | DX: I50.20 Unspecified systolic (congestive) heart failure (principal); R91.1 Solitary pulmonary nodule | CPT/HCPCS: 71046 ==

== ENCOUNTER → 2024-09-26 09:21 | Outpatient (REF) | payer MEDICARE, OTHER, SELFPAY ==
[2024-09-26 10:55] LABS: % Basophils 0.3 % (0-2); % Eosinophils 0.8 % (0-6); % Immature Granulocytes 0.3 % (0-0.5); % Lymphocytes 16.3 % (20.5-51.1); % Monocytes 9.4 % (1.7-9.3); % Neutrophils 72.9 % (42.2-75.2); Absolute Eosinophils 0.1 10^3/uL (0-0.7); Absolute Monocytes 0.6 10^3/uL (0.1-0.6); Absolute Neutrophils 4.5 10^3/uL (1.4-6.5); Hematocrit 31.4 % (39.0-52.0); Hemoglobin 10.3 g/dL (13.0-18.0); Mean Corp Hgb Conc. 32.8 g/dL (33.0-37.0); Mean Corpuscular Hgb 31.8 pg (27.0-31.0); Mean Corpuscular Volume 96.9 fL (80.0-94.0); Mean Platelet Volume 10.2 fL (7.4-10.4); Nucleated Red Blood Cells % 0 % (-); Platelet Count 160 10^3/uL (130-400); Red Blood Cell Count 3.24 10^6/uL (4.70-6.10); Red Cell Dist. Width 13.2 % (11.5-14.5); White Blood Cell Count 6.2 10^3/uL (4.8-10.8)
[2024-09-26 11:58] LABS: Folate 8.3 ng/ml (2.76-20); Vitamin B12 205 pg/ml (239-931)
== END ==
LOC: OLABPV 09:21
PROVIDERS: ATTENDING PHYSICIAN Family Medicine
DX: D64.9 Anemia, unspecified (principal); D52.9 Folate deficiency anemia, unspecified; Z79.899 Other long term (current) drug therapy
CPT/HCPCS: 36415; 82607; 82746; 85025

== ENCOUNTER → 2024-11-28 10:27 | Outpatient (REF) | payer MEDICARE, OTHER, SELFPAY ==
[2024-11-28 11:21] LABS: % Basophils 0.6 % (0-2); % Eosinophils 1.5 % (0-6); % Immature Granulocytes 0.4 % (0-0.5); % Monocytes 8.9 % (1.7-9.3); % Neutrophils 66.6 % (42.2-75.2); Absolute Eosinophils 0.1 10^3/uL (0-0.7); Absolute Lymphocytes 1.1 10^3/uL (1.2-3.4); Absolute Monocytes 0.4 10^3/uL (0.1-0.6); Absolute Neutrophils 3.2 10^3/uL (1.4-6.5); Hematocrit 29.6 % (39.0-52.0); Hemoglobin 9.8 g/dL (13.0-18.0); Mean Corp Hgb Conc. 33.1 g/dL (33.0-37.0); Mean Corpuscular Hgb 31.4 pg (27.0-31.0); Mean Corpuscular Volume 94.9 fL (80.0-94.0); Nucleated Red Blood Cells % 0 % (-); Platelet Count 157 10^3/uL (130-400); Red Blood Cell Count 3.12 10^6/uL (4.70-6.10); Red Cell Dist. Width 13.8 % (11.5-14.5); White Blood Cell Count 4.8 10^3/uL (4.8-10.8)
[2024-11-28 11:49] LABS: ALT (SGPT) 16 U/L (0-50); AST (SGOT) 24 U/L (17-59); Albumin 3.6 g/dl (3.5-5.0); Alkaline Phosphatase 60 U/L (38-126); Blood Urea Nitrogen 21 mg/dl (9-20); Calcium 8.9 mg/dl (8.4-10.2); Carbon Dioxide 27 mmol/L (22-30); Chloride 106 mmol/L (98-107); Glucose 100 mg/dl (70-99); Potassium 4.1 mmol/L (3.5-5.1); Sodium 141 mmol/L (135-145); eGFR > 60.00
[2024-11-28 12:15] LABS: PSA, Total - Diagnostic 3.89 ng/ml (0.0-4.0)
== END ==
LOC: REG 10:27
PROVIDERS: ATTENDING PHYSICIAN Specialist; FAMILY PHYSICIAN Family Medicine
DX: R97.21 Rising PSA following treatment for malignant neoplasm of prostate (principal); I10 Essential (primary) hypertension; D64.9 Anemia, unspecified
CPT/HCPCS: 36415; 80053; 84153; 85025

== ENCOUNTER → 2025-02-05 10:26 | Outpatient (REF) | payer MEDICARE, OTHER, SELFPAY | LOC: RAD 10:26 | PROVIDERS: ATTENDING PHYSICIAN Specialist; FAMILY PHYSICIAN Family Medicine | DX: R97.21 Rising PSA following treatment for malignant neoplasm of prostate (principal) | CPT/HCPCS: 78306; A9503 ==

== ENCOUNTER → 2025-02-09 09:52 | Outpatient (REF) | payer MEDICARE, OTHER, SELFPAY ==
[2025-02-09 11:27] LABS: PSA, Total - Diagnostic 4.15 ng/ml (0.0-4.0)
== END ==
LOC: OLABPV 09:52
PROVIDERS: ATTENDING PHYSICIAN Specialist
DX: R97.21 Rising PSA following treatment for malignant neoplasm of prostate (principal)
CPT/HCPCS: 36415; 84153